=== PATIENT | male | born 1965 | race Caucasian/White ===

== ENCOUNTER 2018-03-17 15:14 | Observation (INO) | payer OTHER, SELFPAY ==
[2018-03-17 15:16] VITALS: BP 142/87; PULSE 83; RESP 15; TEMP 36.8; O2SAT 98; BMI 32.8
--- NOTE | 2018-03-17 15:42 | CT_ITS ---
STUDY: CT BRAIN WITHOUT CONTRAST REASON FOR EXAM: Male, 53 years old. Vertigo RADIATION DOSAGE (If Supplied By Facility): CTDIvol = ( 44.99 ) mGy, DLP = ( 762.36 ) mGycm TECHNIQUE: Transaxial CT imaging of the brain was performed without administration of intravenous contrast material. Individualized dose optimization techniques were used for this CT. COMPARISON: None. FINDINGS: There is no acute bleed or infarct. There are normal white matter tracts. The ventricles are normal in configuration. There is no hydrocephalus. The visualized paranasal sinuses are clear. The mastoid air cells are well aerated. There is no skull fracture. CT/Brain/Head without Contrast IMPRESSION: No acute intracranial abnormality. Electronically Signed: John Flower, at 16:31 EDT Tel , Service support ,
[2018-03-17] MEDS: LORazepam 2 MG/ML Syringe 0.5 MG IV (15:54)
[2018-03-17] MEDS: Ondansetron 4 MG/2 ML Vial IV (15:54)
--- NOTE | 2018-03-17 15:58 | NURSING ---
NO OLD EKGS
[2018-03-17 16:21] LABS: Basophil% 0.5 % (0-1); Eosinophils% 2.4 % (0-5); Hematocrit 46.6 % (40-54); Hemoglobin 15.7 g/dl (13.0-16.5); Lymphocyte % 45.1 % (19-41); Mean Corp Hgb Conc 33.7 g/gl (32-36); Mean Corpuscular Hgb 29.9 pg (27.0-32.0); Mean Corpuscular Volume 88.8 fL (80-94); Mean Platelet Vol. 9.8 fl (6.2-12.0); Monocyte% 7.1 % (0-10); Neutrophil % 44.7 % (47-70); POSITIVE COUNT NO; POSITIVE DIFFERENTIAL NO; POSITIVE MORPHOLOGY NO; Platelet Count 294 K/mm3 (150-450); RBC Distribution Width SD 41.7 fl (35.1-43.9); Red Blood Count 5.25 M/mm3 (4.6-6.2); White Blood Count 8.5 K/mm3 (4.4-11.0)
[2018-03-17 16:22] LABS: Absolute Lymphocyte Count 3.82 X10^3/ul (0.83-4.51); Absolute Neutrophil Count 3.8 X10^3/uL (2.0-7.7); Basophil# 0.04 X10^3/uL; Lymphocyte # 3.82 X10^3/ul (4.0); Neutrophil # 3.79 X10^3/uL (2.7-7.7)
[2018-03-17 16:30] LABS: ALB/GLOB Ratio 1.2 RATIO (0.9-2.4); AST(SGOT) 27 U/L (15-37); Alanine Aminotransfer ALT/SGPT 43 U/L (16-61); Albumin, Serum 4.1 g/dL (3.2-5.0); Alkaline Phosphatase 106 U/L (45-117); Anion Gap 9 (5-15); BUN 12 mg/dL (7-18); BUN/Creat Ratio 9.2 RATIO (10-20); Calcium,Total 8.9 mg/dL (8.5-10.1); Chloride 106 mmol/L (98-107); Creatinine, Serum 1.31 mg/dL (0.70-1.30); EST Glomerular Filtration Rate 61 mL/min (>60); Est Glom Filt Rate - Afr Amer 73 mL/min (>60); Estimated Creatinine Clearance 60.27 ml/min; Globulin 3.3 g/dL (2.2-4.2); Glucose 186 mg/dL (74-106); Potassium 3.5 mmol/L (3.5-5.1); Protein, Total 7.4 g/dL (6.4-8.2); Sodium Level 141 mmol/L (136-145)
--- NOTE | 2018-03-17 17:11 | ED.VISSUMM ---
- ER Visit Summary Date of Service: 03/17/18 Chief Complaint: Vertigo History of Present Illness: The patient is a 53 M who woke up with vertigo this morning. It is not positional, although some episodes are worse with certain positions. He also has some disequilibrium, he feels drunk. He has no weakness, no fever or chills. He has no chest pain shortness of breath. Physical Examination: Not appear in acute distress. Moist mucous membranes, no obvious facial deformity No C-spine tenderness supple neck. Regular rate and rhythm without any obvious murmurs Clear lungs bilaterally speaking in full sentences without any obvious respiratory distress Abdomen soft and nontender no guarding or rebound Moves all extremities without any difficulty or pain. Skin does not show any obvious rashes or lesions, no trauma. Alert oriented ?3 with no gross focal deficit. He has a negative cerebellar, however a positive Romberg. Emergency Department Course and Treatment: CT of the head and blood work are unremarkable, I am unable to do a CT angiogram of the head and neck since he has an iodine allergy, he will need an MRI and an MRA, he has a history of hypertension hypercholesterolemia, diabetes and heart attack with stent. The concern today is vertebral basilar insufficiency. Disposition: Admit stable condition Impression: Vertigo This note was generated with [employer] dictation software. It may contain incorrect words, spelling, and punctuation that were not noted in review of the chart prior to signing ED Disposition - Plan for ED Patient: Chief Complaint: Dizziness Referrals: Jose A Bush MD [Primary Care Provider] -
[2018-03-17 17:15] VITALS: BP 143/76; PULSE 85; RESP 16; O2SAT 97
[2018-03-17] MEDS: Aspirin 325 MG Tablet PO (17:21)
--- NOTE | 2018-03-17 17:39 | PCM.HP.STD ---
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 The patient woke up this morning with a sensation of the room spinning. He noticed that both while lying flat and also when he was up moving. He had difficulty ambulating because he felt unsteady. At first he felt like the vertigo was not as severe sitting in certain positions however later through the day he felt like nothing he did made it better. He denies headache however he felt like he might be having the onset of a migraine, he has had these in the past, and he took ibuprofen and Excedrin. He had no relief of his symptoms. He has no light sensitivity. He denies double vision or blurry vision. He has no focal weaknesses. He has no slurred speech or facial droop. Currently in the emergency room he still feels the sensation of the room spinning and has had no relief. [] Past Medical History Past Medical History (Chronic Problems): Chronic Problems HTN (hypertension) (Chronic) HLD (hyperlipidemia) (Chronic) CAD (coronary artery disease) (Chronic) DM2 (diabetes mellitus, type 2) (Chronic) Allergies Iodinated Contrast- Oral and IV Dye [CONTRASTS] Allergy (Verified 03/17/18 15:15) Hives levofloxacin [From Levaquin] Allergy (Verified 03/17/18 15:15) Hives Home Medications: Ambulatory Orders Medication Instructions Recorded Aspirin [Aspirin, Baby] 81 mg PO DAILY@0800 03/17/18 Atenolol [Tenormin] 25 mg PO DAILY 03/17/18 Atorvastatin Calcium [Lipitor] 80 mg PO QHS 03/17/18 Lisinopril [Zestril] 2.5 mg PO DAILY 03/17/18 Pantoprazole Sodium [Protonix] 20 mg PO DAILY 03/17/18 Zolpidem Tartrate [Ambien] 10 mg PO QHS 03/17/18 Surgical History: cholecystectomy, rotator cuff repair Psychiatric History: No pertinent psych hx Lives: Spouse/ Significant Other Smoking Status: Never smoker Alcohol: Occasional Drugs: None - *Family History Maternal History Items: Cancer - cervical Paternal History Items: Heart Disease - [place] 42 Review of Systems Constitutional: Denies: Chills, Fever, Weight Change HEENT: Denies: Head Aches, Sinus Congestion, Sinus Drainage Cardiovascular: Denies: Chest Pain, Palpitations Respiratory: Denies: Cough, Shortness of breath at rest, Sputum production Gastrointestinal: Denies: Abdominal Pain, Nausea, Vomiting Genitourinary: Denies: Dysuria Musculoskeletal: Denies: Joint Pain, Joint Tenderness Skin: Denies: Rash, Wounds Neurological: Reports: Balance problems, - - vertigo. Denies: Blurred vision, Double vision, Change in Speech, Slurred speech, Confusion, Difficulty swallowing, Focal weakness, Headaches, Numbness, Tingling Psychiatric: Denies: Anxiety, Depression, Homicidal Ideations, Suicidal Ideations Hematologic/ Lymphatic: Denies: Easy Bruising, Easy Bleeding VTE Information - Inpt Only VTE Present on Admission: No VTE Mechan Device Prophylaxis: None VTE Pharm Prophylaxis ordered?: Yes Patient Problems: Active and Suspected Problems CVA (cerebral vascular accident) (Acute) Vertigo (Acute) - Physical Exam General: Alert, Oriented x3, Cooperative HEENT: Atraumatic, PERRLA, EOMI, Normocephalic Neck: Supple, No JVD, Negative Carotid Bruits Lungs: Clear to auscultation, Normal air movement Cardiovascular: Regular rate, No murmurs Abdomen: Bowel Sounds Present, Soft, Non Tender Extremities: No edema, Capillary Refill Less than 3 Seconds Skin: No rashes, No breakdown Musculoskeletal: No Tenderness to Palpation of Joints or Extremities Neurological: Cranial nerves II-XII grossly intact, - - 2 beats nystagmus BL Psych/Mental Status: Normal Affect, Appropriate, Alert and oriented to time, place, person, mood and affect Vital Signs Temp Pulse Resp BP Pulse Ox 98.3 F 85 16 143/76 H 97 03/17/18 15:16 08/12/18 17:15 03/17/18 17:15 03/17/18 17:15 03/17/18 17:15 Oxygen Delivery Method Room Air Weight: 210 lb Body Mass Index (BMI) 32.8 Laboratory Tests Past 24 Hrs 03/17/18 03/17/18 15:55 15:55 WBC 8.5 RBC 5.25 Hgb 15.7 Hct 46.6 MCV 88.8 MCH 29.9 MCHC 33.7 RDW 13.0 RDW Differential 41.7 Plt Count 294 MPV 9.8 Immature Gran % (Auto) 0.200 Neut % (Auto) 44.7 L Lymph % (Auto) 45.1 H Ceiba % (Auto) 7.1 Eos % (Auto) 2.4 Baso % (Auto) 0.5 Absolute Neuts (auto) 3.8 Absolute Lymphs (auto) 3.82 Total Counted Not Reportable Sodium 141 Potassium 3.5 Chloride 106 Carbon Dioxide 26.0 Anion Gap 9 BUN 12 Creatinine 1.31 H Estim Creat Clear Calc 60.27 Est GFR (MDRD) Af Amer 73 Est GFR (MDRD) Non-Af 61 BUN/Creatinine Ratio 9.2 L Glucose 186 H Calcium 8.9 Total Bilirubin 0.60 AST 27 ALT 43 Alkaline Phosphatase 106 Troponin I < 0.015 Total Protein 7.4 Albumin 4.1 Globulin 3.3 Albumin/Globulin Ratio 1.2 Assessment/Plan All Active Problems CVA (cerebral vascular accident) (Acute) Vertigo (Acute) 1. Vertigo with concern for Acute CVA - new onset vertigo, woke up with it. At first he thought it was positional, then worsened and position made no difference. Nystagmus on exam, otherwise benign. CT brain negative. Other risk factors include HTN, HLD, undiagnosed DMt2. No smoking hx. He will be admitted to the PCU on tele with NIH checks. He will have an MRI/MRA of the brain, head, neck, and an echo. Continue asa and statin. -he also has a hx of migraine although denies headache at this time. -PT/OT/ST evals. 2. CAD - pt of Dr. Martinez, has 1 stent, 2003. On asa, statin, keny, bb. 3. Hyperglycemia - suspect undiagnosed DMt2. Check A1C and initiate therapy as directed 4. HTN - stable 5. HLD - statin 6. Mildly elevated creatinine - suspect underlying CKD. Baseline unknown. DVT ppx: Heparin This patient was seen by Nicolas Klein PA-C under the supervision of Doctor Jessica. <Mukund Lopez - Last Filed: 03/17/18 18:03> Problem List (1) Vertigo Status: Acute History of Present Illness The patient is a 53 year old M who awoke this morning very dizzy. Patient rolled over and just felt just awful. Was not getting better and presented to the emergency room. Patient underwent a CAT scan that showed no acute process. Patient states that he does not have any dizziness except for when he moves. Any subtle movement just causes him to be dizzy. He denies any unilateral weakness strokelike symptoms. Patient has never had dizziness like this before. [] Past Medical History Allergies Iodinated Contrast- Oral and IV Dye [CONTRASTS] Allergy (Verified 03/17/18 15:15) Hives levofloxacin [From Levaquin] Allergy (Verified 03/17/18 15:15) Hives Surgical History: cholecystectomy, rotator cuff repair Psychiatric History: No pertinent psych hx Lives: Spouse/ Significant Other Smoking Status: Never smoker Alcohol: Occasional Drugs: None - *Family History Maternal History Items: Cancer Paternal History Items: Heart Disease Review of Systems Constitutional: Denies: Chills, Fever, Weight Change HEENT: Denies: Head Aches, Sinus Congestion, Sinus Drainage Cardiovascular: Denies: Chest Pain, Palpitations Respiratory: Denies: Cough, Shortness of breath at rest Gastrointestinal: Denies: Abdominal Pain, Nausea, Vomiting Genitourinary: Denies: Dysuria Musculoskeletal: Denies: Joint Pain, Joint Tenderness Skin: Denies: Rash, Wounds Neurological: Reports: Balance problems, -. Denies: Blurred vision, Double vision, Change in Speech, Slurred speech, Confusion, Difficulty swallowing, Focal weakness, Headaches, Numbness, Tingling Psychiatric: Denies: Anxiety, Depression, Homicidal Ideations, Suicidal Ideations Hematologic/ Lymphatic: Denies: Easy Bruising, Easy Bleeding Comment: All review of systems are negative except as mentioned in the history of present illness and the other review of systems. VTE Information - Inpt Only VTE Present on Admission: No VTE Mechan Device Prophylaxis: None VTE Pharm Prophylaxis ordered?: Yes - Physical Exam General: Alert, Oriented x3, Cooperative HEENT: Atraumatic, EOMI, Normocephalic, - - There was some vertical nystagmus that did fatigue. Noted most notably on the left but there was some on the right. Oral: Moist Mucosa, No Gingival or Mucosal Lesions/ Ulcerations Neck: No Nodes, Thyroid Normal Size and Texture Lungs: Clear to auscultation, Normal air movement, No rhonchi, No wheeze Cardiovascular: Regular rate, Regular Rhythm, Normal S1, Normal S2, No murmurs Abdomen: Bowel Sounds Present, Soft, Non Tender, Non-Distended Extremities: No edema, No Calf Tenderness Skin: No rashes, No breakdown Musculoskeletal: No Tenderness to Palpation of Joints or Extremities, No Muscle Wasting Neurological: Cranial nerves II-XII grossly intact, Motor Exam 5/5 strength throughout, Sensory exam intact to light touch and pain, Coordination normal, - - 2 beats nystagmus BL. Tahmina-Hallpike maneuver was positive for reproducible dizziness on the right. Psych/Mental Status: Normal Affect, Appropriate Vital Signs Temp Pulse Resp BP Pulse Ox 36.8 C 85 16 143/76 H 97 03/17/18 15:16 03/17/18 17:15 03/17/18 17:15 03/17/18 17:15 03/17/18 17:15 Oxygen Delivery Method Room Air Weight: 95.254 kg Body Mass Index (BMI) 32.8 Laboratory Tests Past 24 Hrs 03/17/18 03/17/18 15:55 15:55 WBC 8.5 RBC 5.25 Hgb 15.7 Hct 46.6 MCV 88.8 MCH 29.9 MCHC 33.7 RDW 13.0 RDW Differential 41.7 Plt Count 294 MPV 9.8 Immature Gran % (Auto) 0.200 Neut % (Auto) 44.7 L Lymph % (Auto) 45.1 H Ceiba % (Auto) 7.1 Eos % (Auto) 2.4 Baso % (Auto) 0.5 Absolute Neuts (auto) 3.8 Absolute Lymphs (auto) 3.82 Total Counted Not Reportable Sodium 141 Potassium 3.5 Chloride 106 Carbon Dioxide 26.0 Anion Gap 9 BUN 12 Creatinine 1.31 H Estim Creat Clear Calc 60.27 Est GFR (MDRD) Af Amer 73 Est GFR (MDRD) Non-Af 61 BUN/Creatinine Ratio 9.2 L Glucose 186 H Calcium 8.9 Total Bilirubin 0.60 AST 27 ALT 43 Alkaline Phosphatase 106 Troponin I < 0.015 Total Protein 7.4 Albumin 4.1 Globulin 3.3 Albumin/Globulin Ratio 1.2 EKG showed normal sinus rhythm with no acute changes. Clinical Impression(s) from Imaging Studies Brain CT 03/17/18 15:42 IMPRESSION: No acute intracranial abnormality. Electronically Signed: John Flower, at 16:31 EDT Tel , Service support , Assessment/Plan Patient seen and examined independently. Data reviewed. I agree with the above note by the physician content assistant. 1. 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 2. Chronic kidney disease stage II Monitor Will get some IV fluids parlay if it is unclear if this may be acute components as there is no prior lab work to compare to but the IV fluids were think will also help some of his symptoms 3. Hyperglycemia Sliding scale insulin and glucose checks 4. DVT prophylaxis with Lovenox Code Visit OBSV E&M: 83562 Initial observation care L3
--- NOTE | 2018-03-17 17:40 | NURSING ---
PCU DIZZINESS OBS JOPPERI
--- NOTE | 2018-03-17 17:46 | NURSING ---
DR DAVIS IN WITH PATIENT
[2018-03-17 18:05] VITALS: BP 141/80; PULSE 81; RESP 17; O2SAT 95
[2018-03-17 18:44] VITALS: BMI 32.8; BMI 32.9
[2018-03-17 19:36] VITALS: BP 127/71; PULSE 71; RESP 16; TEMP 36.6; O2SAT 95
[2018-03-17] MEDS: Meclizine HCl 25 MG Tablet PO (19:41)
[2018-03-17] MEDS: Acetaminophen 325 MG Tablet 650 MG PO (20:16)
[2018-03-17] MEDS: 0.9% Normal Saline 1,000 ML 125 ML IV (20:17)
[2018-03-17] MEDS: Atorvastatin Calcium 80 MG Tablet PO (22:21)
[2018-03-17] MEDS: Pantoprazole Sodium 20 MG Tablet PO (22:21)
[2018-03-17] MEDS: Atenolol 25 MG Tablet PO (22:22)
[2018-03-17] MEDS: Lisinopril 2.5 MG Tablet PO (22:22)
[2018-03-18] MEDS: DiphenhydrAMINE 25 MG Capsule PO (00:06)
[2018-03-18] MEDS: Aspirin 81 MG TAB.CHEW PO (00:07)
[2018-03-18 01:40] VITALS: BP 94/51; PULSE 66; RESP 16; TEMP 36.6; O2SAT 95
[2018-03-18 05:56] LABS: Cholesterol 111 mg/dL (200); High Density Lipoprotein 30 mg/dL; Triglycerides 200 mg/dL; Very Low Density Lipoprotein 40 mg/dL (5-40)
[2018-03-18 07:20] LABS: Bedside Glucose 114 mg/dL (70-110)
[2018-03-18 07:24] VITALS: BP 100/62; BP 124/83; BP 126/78; PULSE 64; PULSE 69; PULSE 74
[2018-03-18 07:25] VITALS: BP 100/62; PULSE 64; RESP 16; TEMP 36.4; O2SAT 98
[2018-03-18] MEDS: Meclizine HCl 25 MG Tablet PO (07:33)
[2018-03-18] MEDS: Enoxaparin 40 MG/0.4 ML Syringe SC (10:06)
[2018-03-18] MEDS: Insulin Lispro 100 UNIT/ML INSULN.PEN SQ (11:25)
[2018-03-18 11:26] LABS: Bedside Glucose 197 mg/dL (70-110)
[2018-03-18 11:27] VITALS: BP 126/69; PULSE 67; RESP 16; TEMP 36.6; O2SAT 98
--- NOTE | 2018-03-18 11:37 | PCM.DC ---
- Discharge Diagnoses Current Active Problems: Current Active and Chronic Problems CVA (cerebral vascular accident) (Acute) HTN (hypertension) (Chronic) HLD (hyperlipidemia) (Chronic) CAD (coronary artery disease) (Chronic) DM2 (diabetes mellitus, type 2) (Chronic) Vertigo (Acute) You will use the following diet at home:: Calorie/Carbohydrate Controlled (specify 1200, 1400, etc) - 1800 piper / day, Cardiac - 2 gram sodium max daily Your food should be the consistency of: Regular Your liquids should be the consistency of: Regular/Thin Discharge Activity: Return to Normal Activity, - - Begin vestibular therapy at facility of your choice [facility] Allergies/Adverse Reactions: Allergies Iodinated Contrast- Oral and IV Dye [CONTRASTS] Allergy (Verified 03/17/18 15:15) Hives levofloxacin [From Levaquin] Allergy (Verified 03/17/18 15:15) Hives Medications to take at Discharge Aspirin [Aspirin, Baby] 81 mg PO DAILY@0800 03/17/18 Atenolol [Tenormin] 25 mg PO DAILY 03/17/18 Atorvastatin Calcium [Lipitor] 80 mg PO QHS 03/17/18 L.acidoph,Paracasei, B.lactis [Probiotic] 1 each PO DAILY 03/17/18 Lisinopril [Zestril] 2.5 mg PO DAILY 03/17/18 Pantoprazole Sodium [Protonix] 20 mg PO DAILY 03/17/18 Zolpidem Tartrate [Ambien] 10 mg PO QHS 03/17/18 Meclizine HCl [Antivert] 25 mg PO TID PRN PRN #42 tab 03/18/18 The following prescriptions were given: Meclizine HCl [Antivert] 25 mg PO TID PRN PRN #42 tab PRN Reason: Vertigo Primary Care Physician: Jose A Bush MD [Primary Care Provider] - Please follow up with your Primary Care Physician in: 1 week Test Results: Test results from this visit will be discussed in further detail at your follow-up appointment, if applicable. Proposed Discharge Date: 03/18/18
--- NOTE | 2018-03-18 13:19 | PCM.DC.SUM ---
<Nicolas Klein - Last Filed: 03/18/18 13:19> Discharge Date and Diagnosis Date of Admission: 03/17/18 Date of Discharge: 03/18/18 - Primary Discharge Diagnosis Vertigo 2/2 BPPV HTN HLD CAD Untreated DMt2 - Secondary Discharge Diagnosis Chronic Problems HTN (hypertension) (Chronic) HLD (hyperlipidemia) (Chronic) CAD (coronary artery disease) (Chronic) DM2 (diabetes mellitus, type 2) (Chronic) Hospital Course and Treatment Imaging Results: CT/Brain/Head without Contrast IMPRESSION: No acute intracranial abnormality. Operations: None Procedures: None Summary of Care Provided: Physical exam on day of discharge: General: Resting comfortably NAD Psych: A/Ox3 normal affect HEENT: PEARRLA AT NC, lateral nystagmus bilaterally 2-3 beats Neck: Supple NT CV: RRR no m/t/r/g/h Resp: CTA Abd: [id number] Soft NT no guarding or rigidity Ext: DP2+= no edema Skin: W/D normal turgor Lymph/Heme: No active bleeding or adenopathy Neuro: CN2-12 intact Hospital course: The patient is a 53 year old M with a history of CAD status post prior stenting x 2003, hypertension, hyperlipidemia, untreated diabetes type 2, who presents to the emergency room with new onset of vertigo that began the morning of presentation. The patient woke up with it and described as a spinning sensation that he felt while laying down and worse with standing up and moving. As the day progressed the sensation became worse with no relief. He thought he might be having a migraine and try taking some ibuprofen and Excedrin with no relief. He presented to the emergency room and continued to have sensations of vertigo. CT of the brain was obtained which was negative. Initially there was a concern that he may have experienced a stroke however on further exam he had positive nystagmus and positive Tahmina-Hallpike maneuvers. He was felt to have BPPV. He was admitted to the general medical floor and PT and OT was ordered, as needed meclizine was ordered. The following morning he had some improvement in his symptoms although he continued to have vertigo worse with standing and walking. This felt that he could be discharged home to have follow-up with his PCP and to have vestibular therapy as an outpatient. A prescription for this was provided as well as for as needed meclizine. Furthermore his blood sugar was elevated at 180 when he showed up in the ER, and it was discovered that he had stopped taking metformin. He likely has underlying diabetes type 2 and should be treated especially considering his history of CAD, hypertension, and hyperlipidemia. We advised him to discuss treatment options with his PCP and advised an 1800-calorie diet at discharge in addition to a cardiac diet. Patient was discharged home in stable condition. This patient was seen by Nicolas Klein PA-C under the supervision of Doctor Jessica. [] Discharge Diet: Low fat/ Low Cholesterol, 1800 Calorie Control Diet, 2000 mg Sodium Diet Discharge Activity: Return to Normal Activity, - - Begin vestibular therapy at facility of your choice [facility] Medications: Medications to take at Discharge Aspirin [Aspirin, Baby] 81 mg PO DAILY@0800 03/17/18 Atenolol [Tenormin] 25 mg PO DAILY 03/17/18 Atorvastatin Calcium [Lipitor] 80 mg PO QHS 03/17/18 L.acidoph,Paracasei, B.lactis [Probiotic] 1 each PO DAILY 03/17/18 Lisinopril [Zestril] 2.5 mg PO DAILY 03/17/18 Pantoprazole Sodium [Protonix] 20 mg PO DAILY 03/17/18 Zolpidem Tartrate [Ambien] 10 mg PO QHS 03/17/18 Meclizine HCl [Antivert] 25 mg PO TID PRN PRN #42 tab 03/18/18 Following Prescrptions Were Given to Patient: Meclizine HCl [Antivert] 25 mg PO TID PRN PRN #42 tab PRN Reason: Vertigo Primary Care Physician: Jose A Bush MD [Primary Care Provider] - Please follow up with your Primary Care Physician in: 1 week Disposition: Home Minutes spent on discharge:: 35 Patient Condition:: Stable Medical Necessity - Tobacco Use Smoking Status: Never smoker Meaningful Use Info Meaningful Use Diagnoses (Choose all that apply): None applicable <Mukund Lopez - Last Filed: 03/18/18 14:04> Discharge Date and Diagnosis - Secondary Discharge Diagnosis Chronic Problems HTN (hypertension) (Chronic) HLD (hyperlipidemia) (Chronic) CAD (coronary artery disease) (Chronic) DM2 (diabetes mellitus, type 2) (Chronic) Hospital Course and Treatment Operations: None Procedures: None Summary of Care Provided: Patient seen and examined independently. Data reviewed. I agree with the above note by the physician assistant food service director. The patient is a 53 year old M alecia with acute onset of dizziness. Clinically, this was benign paroxysmal positional vertigo. Patient had acute onset of symptoms worse with movement. On exam, patient had fatigable nystagmus. Patient had a positive [place]-Hallpike on the right. Some additional stroke workup was not necessary. Today, the patient was feeling better though still dizzy. I attempted doing Martha maneuvers with him and patient still remained dizzy. Patient was seen by therapy did not recommend skilled needs for the patient. Patient will be discharged home with meclizine as needed but also with instructions to follow-up with physical therapy for vestibular rehab. [] Discharge Diet: Low fat/ Low Cholesterol, 1800 Calorie Control Diet, 2000 mg Sodium Diet Discharge Activity: Return to Normal Activity, - Disposition: Home Patient Condition:: Stable Meaningful Use Info Meaningful Use Diagnoses (Choose all that apply): None applicable Code Visit OBSV E&M: 61172 Observation care discharge
== END 2018-03-18 13:00 | disposition home or self-care (01) ==
LOC: ED 17:56 → MS3 18:12
PROVIDERS: Emergency Provider Emergency Medicine; Family Provider Family Medicine; PCP Family Medicine
DX: H81.10 Benign paroxysmal vertigo, unspecified ear (principal); E78.5 Hyperlipidemia, unspecified; I25.10 Atherosclerotic heart disease of native coronary artery without angina pectoris; Z79.899 Other long term (current) drug therapy; Z79.82 Long term (current) use of aspirin; Z95.5 Presence of coronary angioplasty implant and graft; E11.22 Type 2 diabetes mellitus with diabetic chronic kidney disease; N18.2 Chronic kidney disease, stage 2 (mild); I12.9 Hypertensive chronic kidney disease with stage 1 through stage 4 chronic kidney disease, or unspecified chronic kidney disease; E11.65 Type 2 diabetes mellitus with hyperglycemia
CPT/HCPCS: 36415; 70450; 80053; 80061; 82962; 84484; 85025; 93005; 96361; 96372; 96374; 96375; 96376; 97162; 97166; 99218; 99282; J7030; J7040; A4216; G0378; J2405

== ENCOUNTER 2019-07-10 12:58 | Observation (INO) | payer OTHER, SELFPAY ==
[2019-07-10] VITALS (9 sets, daily range): BP systolic 145–162; BP diastolic 83–93; PULSE 72–102; RESP 14–18; TEMP 36.5–36.8; O2SAT 95–99; BMI 34.2; BMI 33.2
--- NOTE | 2019-07-10 13:22 | EKG12_ITS ---
Test Reason : CP Blood Pressure : / mmHG Vent. Rate : 087 BPM Atrial Rate : 087 BPM P-R Int : 150 ms QRS Dur : 082 ms QT Int : 374 ms P-R-T Axes : 031 -05 002 degrees QTc Int : 450 ms Normal sinus rhythm Normal ECG Confirmed by JORDAN LOPEZ, FELIPA ([id number]), news assignment editor NATASHA ZHU ([id number]) on 07/13/2019 9:59:13 AM Referred By: Saritha Arce Confirmed By:MICHA ORTEGA MD
--- NOTE | 2019-07-10 13:25 | RAD_ITS ---
STUDY: X-RAY CHEST REASON FOR EXAM: Male, 54 years old. Chest pain. TECHNIQUE: Single AP portable view of the chest. COMPARISON: None. FINDINGS: EKG electrodes are seen. The lungs are clear and expanded. There is no demonstrated pleural abnormality. Normal size heart. Normal mediastinum and mamadou. Normal visualized pulmonary arteries. Normal visualized aortic arch and descending thoracic aorta. Normal visualized thoracic spine. Status post left shoulder replacement. Prior fusion in the lower cervical spine. There is no demonstrated abnormality of the visualized soft tissue structures of the upper abdomen. RAD/Chest 1 View (Portable) IMPRESSION: Normal x-ray examination of the chest. Electronically Signed: Ar Tenorio, at 13:43 EST , Service support ,
[2019-07-10 13:33] LABS: Absolute Lymphocyte Count 3.55 X10^3/uL (0.83-4.51); Absolute Neutrophil Count 5.5 X10^3/uL (2.0-7.7); Basophil# 0.05 X10^3/uL; Basophil% 0.5 % (0-1); Eosinophil# 0.15 X10^3/uL; Eosinophils% 1.5 % (0-5); Hematocrit 46.7 % (40-54); Hemoglobin 15.9 g/dL (13.0-16.5); Lymphocyte # 3.55 X10^3/ul (4.0); Lymphocyte % 35.6 % (19-41); Mean Corpuscular Hgb 30.3 pg (27.0-32.0); Mean Platelet Vol. 9.7 fl (6.2-12.0); Monocyte# 0.73 X10^3/uL; Monocyte% 7.3 % (0-10); NRBC Flagged by Analyzer 0 % (0-5); Neutrophil # 5.46 X10^3/uL (2.7-7.7); Neutrophil % 54.7 % (47-70); Platelet Count 388 K/mm3 (150-450); RBC Distribution Width CV 13.2 % (11.6-14.6); RBC Distribution Width SD 42.5 fl (35.1-43.9); Red Blood Count 5.25 M/mm3 (4.6-6.2)
[2019-07-10] MEDS: Aspirin 81 MG TAB.CHEW 324 MG PO (13:34)
[2019-07-10] MEDS: 0.9% Normal Saline 1,000 ML 150 ML IV (13:34)
[2019-07-10 13:47] LABS: Anion Gap 7 (5-15); BUN 11 mg/dL (7-18); BUN/Creat Ratio 8.2 RATIO (10-20); Chloride 109 mmol/L (98-107); Creatinine, Serum 1.34 mg/dL (0.70-1.30); EST Glomerular Filtration Rate 59 mL/min (>60); Est Glom Filt Rate - Afr Amer 71 mL/min (>60); Estimated Creatinine Clearance 58.23 ml/min; Glucose 97 mg/dL (74-106); Potassium 4.1 mmol/L (3.5-5.1); Sodium Level 143 mmol/L (136-145)
--- NOTE | 2019-07-10 14:51 | ED.VISSUMM ---
- ER Visit Summary Date of Service: 07/10/19 Chief Complaint: [Chest pain] History of Present Illness: The patient is a 54 M [presents to the emergency department for complaint of chest discomfort started this morning around 10:30 AM. Patient was walking to his car when the discomfort started. Described a pressure-like and radiated into his neck. Patient has had similar discomfort in the past. He has known coronary artery disease and has had a cardiac stent. Patient also felt somewhat lightheaded with it and short of breath as well as nauseated. On arrival to the ER his discomforts mostly resolved. Patient does have prior history of stroke, diabetes, hypertension, vertigo, and coronary artery disease. He denies recent travel or surgery. He has no history of PE or DVT.] Physical Examination: [HEENT-PERRLA, EOMI. Cranial nerves II through XII grossly intact. TMs clear. Mucous membranes moist. No adenopathy. Cardiovascular-regular rate and rhythm without murmur or ectopy Lungs-clear to auscultation, chest wall stable without crepitus or subcu emphysema Abdomen-normoactive bowel sounds, soft, nontender, no rebound or rigidity, no peritoneal signs. Extremities-intact ?4, normal range of motion, normal pulses, atraumatic] Test Results: [EKG obtained arrival shows sinus rhythm with a ventricular rate of 87 bpm with no acute ST segment changes. CBC with differential was normal. Chemistries unremarkable. Troponin was less than 0.015. Chest x-ray showed nothing acute. Emergency Department Course and Treatment: [Received aspirin on arrival.] Treatment Plan: [Admit] Disposition: [Admit] Impression: [Chest pain-rule out acute coronary syndrome] This note was generated with [employer] dictation software. It may contain incorrect words, spelling, and punctuation that were not noted in review of the chart prior to signing ED Disposition - Plan for ED Patient: Referrals: Jose A Bush MD [Primary Care Provider] -
--- NOTE | 2019-07-10 15:09 | PCM.HP.STD ---
<Lakia Garcia - Last Filed: 07/10/19 15:26> Problem List (1) HTN (hypertension) Status: Chronic (2) HLD (hyperlipidemia) Status: Chronic (3) CAD (coronary artery disease) Status: Chronic (4) DM2 (diabetes mellitus, type 2) Status: Chronic (5) Vertigo Status: Acute History of Present Illness Date of Admission: 07/10/19 Chief Complaint: Chest pain. The patient is a 54 year old M who presents emergency room due to chest pain which began around 1030 this morning and resolved after approximately 2 hours. Patient reports he was walking to his car after work when he developed sudden onset midsternal chest pressure which radiated up the left side of his neck. He reports associated shortness of breath and diaphoresis. He also reports lightheadedness and feeling weak. Patient has a history of CAD with prior stent in 2003 at the age of 38 and reports his presenting symptoms feel similar to prior [place]. at bedside reports patient has appeared to be more short of breath with activity for the past several months although patient denies noticing increased shortness of breath and states it is just due to being overweight and out of shape. Patient states he has had 7 stress test that were normal since his stent was placed, most recently 2 years ago prior to left shoulder replacement surgery. His other past medical history includes hypertension, hyperlipidemia, type 2 diabetes mellitus, obesity. Past Medical History Past Medical History (Chronic Problems): Chronic Problems HTN (hypertension) (Chronic) HLD (hyperlipidemia) (Chronic) CAD (coronary artery disease) (Chronic) DM2 (diabetes mellitus, type 2) (Chronic) Allergies Iodinated Contrast Media [CONTRASTS] Allergy (Verified 07/10/19 13:04) Hives levofloxacin [From Levaquin] Allergy (Verified 07/10/19 13:04) Hives Home Medications: Ambulatory Orders Medication Instructions Recorded Aspirin [Aspirin, Baby] 81 mg PO DAILY@199903/17/18 Atenolol [Tenormin] 25 mg PO DAILY 03/17/18 Atorvastatin Calcium [Lipitor] 80 mg PO QHS 03/17/18 L.acidoph,Paracasei, B.lactis 1 each PO DAILY 03/17/18 [Probiotic] Zolpidem Tartrate [Ambien] 10 mg PO QHS 03/17/18 Glimepiride 2 mg PO DAILY 07/10/19 Lisinopril [Zestril] 5 mg PO DAILY 07/10/19 Pantoprazole Sodium [Protonix] 40 mg PO QHS 07/10/19 Surgical History: cholecystectomy, rotator cuff repair - Left shoulder surgery x3, - - Cardiac stent placement, hernia repair. Psychiatric History: No pertinent psych hx Lives: Spouse/ Significant Other Smoking Status: Never smoker Alcohol: None Drugs: None - *Family History Maternal History Items: Cancer - Ovarian, - - Heart failure Paternal History Items: Heart Disease - from [place] at age 42 Review of Systems Constitutional: Denies: Chills, Fever, Weight Change HEENT: Denies: Head Aches, Sinus Congestion, Sinus Drainage Cardiovascular: Reports: Chest Pain, Light Headedness. Denies: Edema, Palpitations, Syncope Respiratory: Denies: Cough, Shortness of breath at rest, Sputum production Gastrointestinal: Denies: Abdominal Pain, Nausea, Vomiting Genitourinary: Denies: Dysuria Musculoskeletal: Denies: Joint Pain, Joint Tenderness Skin: Denies: Rash, Wounds Neurological: Denies: Numbness, Tingling, Focal weakness Psychiatric: Denies: Anxiety, Depression, Homicidal Ideations, Suicidal Ideations Hematologic/ Lymphatic: Denies: Easy Bruising, Easy Bleeding VTE Information - Inpt Only VTE Present on Admission: No VTE Mechan Device Prophylaxis: None VTE Pharm Prophylaxis ordered?: Yes - Physical Exam Vitals/I&O's: Vital Signs Temp Pulse Resp BP Pulse Ox 98.2 F 74 16 162/93 H 96 07/10/19 12:58 07/10/19 14:40 07/10/19 14:40 07/10/19 14:40 07/10/19 14:40 Oxygen Delivery Method Room Air Weight: 218 lb 11.177 oz Body Mass Index (BMI) 34.2 General: Alert, Oriented x3, Cooperative HEENT: Atraumatic, PERRLA, EOMI, Normocephalic Neck: Supple, No JVD, Negative Carotid Bruits Lungs: Clear to auscultation, Normal air movement Cardiovascular: Regular rate, Regular Rhythm, Normal S1, Normal S2, No murmurs Abdomen: Bowel Sounds Present, Soft, Non Tender, Non-Distended, Obese Extremities: No clubbing, No cyanosis, No edema, Capillary Refill Less than 3 Seconds Skin: No rashes, No breakdown Musculoskeletal: No Tenderness to Palpation of Joints or Extremities Neurological: Cranial nerves II-XII grossly intact, Neuro grossly intact Psych/Mental Status: Normal Affect, Appropriate Laboratory Results 07/10/19 13:10: WBC 10.0, RBC 5.25, Hgb 15.9, Hct 46.7, MCV 89.0, MCH 30.3, MCHC 34.0, RDW Std Deviation 42.5, RDW Coeff of Noam 13.2, Plt Count 388, MPV 9.7, Immature Gran % (Auto) 0.400, Neut % (Auto) 54.7, Lymph % (Auto) 35.6, [place] % (Auto) 7.3, Eos % (Auto) 1.5, Baso % (Auto) 0.5, Absolute Neuts (auto) 5.5, Absolute Lymphs (auto) 3.55, Nucleated RBC % 0 07/10/19 13:10: Sodium 143, Potassium 4.1, Chloride 109 H, Carbon Dioxide 27.0, Anion Gap 7, BUN 11, Creatinine 1.34 H, Estim Creat Clear Calc 58.23, Est GFR (MDRD) Af Amer 71, Est GFR (MDRD) Non-Af 59 L, BUN/Creatinine Ratio 8.2 L, Glucose 97, Calcium 9.0, Troponin I < 0.015 Current Medications Sodium Chloride () 1,000 mls @ 150 mls/hr IV .Q6H40M [facility] Last Admin: 07/10/19 13:34 Dose: 150 mls/hr Documented by: Assessment/Plan All Active Problems Vertigo (Acute) 1. Chest pain, history of CAD status post stent (2003)-EKG without ST-T changes. Initial troponin negative. Trend enzymes. Given normal stress test two years ago, presenting sx similar to prior [place], will discuss with cardiology completing another stress vs cath. Continue aspirin, statin, beta-vj. 2. Hypertension-stable, continue home atenolol, lisinopril regimen. 3. Hyperlipidemia- continue statin. 4. Type 2 diabetes mellitus-hold oral regimen. Accu-Cheks ACHS with SSI. 5. Obesity- encouraged diet and lifestyle modifications. 6. GERD-continue PPI. DVT prophylaxis-not indicated, early ambulation This patient was seen by NORRIS Villatoro under the supervision of Dr. Arce. <YazminSaritha - Last Filed: 07/10/19 15:56> History of Present Illness The patient is a 54 year old M [] Past Medical History Allergies Iodinated Contrast Media [CONTRASTS] Allergy (Verified 07/10/19 13:04) Hives levofloxacin [From Levaquin] Allergy (Verified 07/10/19 13:04) Hives - Physical Exam Vitals/I&O's: Vital Signs Temp Pulse Resp BP Pulse Ox 97.7 F L 75 14 145/83 H 95 07/10/19 15:36 07/10/19 15:44 07/10/19 15:36 07/10/19 15:36 07/10/19 15:36 Oxygen Delivery Method Room Air Weight: 212 lb Body Mass Index (BMI) 33.2 Laboratory Results 07/10/19 13:10: WBC 10.0, RBC 5.25, Hgb 15.9, Hct 46.7, MCV 89.0, MCH 30.3, MCHC 34.0, RDW Std Deviation 42.5, RDW Coeff of Noam 13.2, Plt Count 388, MPV 9.7, Immature Gran % (Auto) 0.400, Neut % (Auto) 54.7, Lymph % (Auto) 35.6, [place] % (Auto) 7.3, Eos % (Auto) 1.5, Baso % (Auto) 0.5, Absolute Neuts (auto) 5.5, Absolute Lymphs (auto) 3.55, Nucleated RBC % 0 07/10/19 13:10: Sodium 143, Potassium 4.1, Chloride 109 H, Carbon Dioxide 27.0, Anion Gap 7, BUN 11, Creatinine 1.34 H, Estim Creat Clear Calc 58.23, Est GFR (MDRD) Af Amer 71, Est GFR (MDRD) Non-Af 59 L, BUN/Creatinine Ratio 8.2 L, Glucose 97, Calcium 9.0, Troponin I < 0.015 Current Medications Acetaminophen (Tylenol) 650 mg PO Q6H PRN PRN PRN Reason: Pain Score 1-3/Temp > 100.7 F Aspirin (Aspirin, Baby) 81 mg PO DAILY@2000 [facility] Atenolol (Tenormin (Beta Vj)) 25 mg PO DAILY [facility] Atorvastatin Calcium (Lipitor) 80 mg PO QHS [facility] Dextrose (D50w Syringe) 0 gm IV X1 PRN; Protocol PRN Reason: Hypoglycemia Glimepiride (Amaryl) 2 mg PO DAILY@0800 [facility] Glucagon () 1 mg IM .X1 PRN PRN Reason: Hypoglycemia Insulin Human Lispro (Humalog Kwikpen (Bkc)) 0 unit SC ACHS [facility]; Protocol Lisinopril (Zestril) 5 mg PO DAILY [facility] Morphine Sulfate () 2 mg IV Q3H PRN PRN PRN Reason: Pain Score 6-10/10 Ondansetron HCl (Zofran) 4 mg IV Q8H PRN PRN PRN Reason: NAUSEA/VOMITING Pantoprazole Sodium (Protonix) 40 mg PO QHS [facility] Sodium Chloride () 10 - 40 ml IV UD PRN PRN Reason: SALINE FLUSH Zolpidem Tartrate (Ambien (Generic)) 5 mg PO QHS [facility] Zolpidem Tartrate (Ambien (Generic)) 5 mg PO QHS PRN PRN PRN Reason: SLEEP Assessment/Plan Patient seen by Lakia PISANO under my supervision Patient is a 54-year-old male was admitted through the ED on 07/10/2019 with a complaint of chest pain was started around 10:30 AM on the morning of presentation. Pain was pressure-like and occasionally stabbing and retrosternal with no radiation. It was aggravated by movement and exertion and relieved by rest and keeping still. He had not said lightheadedness or dizziness or palpitations. Patient does have a history of CAD status post stenting 2003. Initial troponin was negative. EKG showed no acute ST changes. o/e: Vital Signs Height 5 ft 7 in Weight: 212 lb Weight in Pounds 212.0 lbs Pulse Ox 95 Temperature 97.7 F Pulse Rate 75 Respiratory Rate 14 Blood Pressure 145/83 Blood Pressure Position Semi-Fowlers General: Alert, Oriented x3, Cooperative HEENT: Atraumatic, PERRLA, EOMI, Normocephalic Neck: Supple, No JVD, Negative Carotid Bruits Lungs: Clear to auscultation, Normal air movement Cardiovascular: Regular rate, Regular Rhythm, Normal S1, Normal S2, No murmurs Abdomen: Bowel Sounds Present, Soft, Non Tender, Non-Distended, Obese Extremities: No clubbing, No cyanosis, No edema, Capillary Refill Less than 3 Seconds Skin: No rashes, No breakdown Musculoskeletal: No Tenderness to Palpation of Joints or Extremities Neurological: Cranial nerves II-XII grossly intact, Neuro grossly intact Psych/Mental Status: Normal Affect, Appropriate Patient is very high risk for cardiac issues. He has a history of CAD with a stent in 2003. However he also has diabetes and high cholesterol and hypertension. His father at 42 of a heart attack after having his first heart attack at 40 and his brothers have also had extensive cardiac history at a relatively young age. I am not convinced that if this patient has a stress test and it is negative, I cannot completely rule out cardiac disease. As such, I think it is prudent to get cardiology involved at this point as I think he will benefit from a cardiac cath. Cardiology therefore consulted. Will check lipid panel. Cycle troponins. Continue aspirin and sublingual nitroglycerin as needed. Continue statin and atenolol. ISS; accuchecks ACHS. Rest of management as per Lakia Garcia PROGRAMMER OPERATOR NUMERICAL CONTROL-C's note, which I have reviewed and endorsed. Code Visit OBSV E&M: 78149 Initial observation care L2
--- NOTE | 2019-07-10 15:41 | EKG12_ITS ---
Test Reason : ADMISSION Blood Pressure : / mmHG Vent. Rate : 070 BPM Atrial Rate : 070 BPM P-R Int : 144 ms QRS Dur : 078 ms QT Int : 410 ms P-R-T Axes : 023 -15 001 degrees QTc Int : 442 ms Normal sinus rhythm Normal ECG When compared with ECG of 10-JUL-2019 13:01, MANUAL COMPARISON REQUIRED, DATA IS UNCONFIRMED Confirmed by JORDAN LOPEZ, FELIPA ([id number]), news video editor NATASHA ZHU ([id number]) on 07/13/2019 10:37:00 AM Referred By: Saritha Arce Confirmed By:MICHA ORTEGA MD
[2019-07-10 16:10] LABS: Bedside Glucose 81 mg/dL (70-110)
[2019-07-10 17:16] LABS: Hemoglobin A1c 6.8 % (4.2-6.3)
[2019-07-10] MEDS: Aspirin 81 MG TAB.CHEW PO (22:02)
[2019-07-10] MEDS: Atorvastatin Calcium 80 MG Tablet PO (22:03)
[2019-07-10] MEDS: Pantoprazole Sodium 40 MG Tablet PO (22:03)
[2019-07-10] MEDS: Lisinopril 5 MG Tablet PO (22:03)
[2019-07-10] MEDS: Atenolol 25 MG Tablet PO (22:05)
[2019-07-10 22:45] LABS: Bedside Glucose 78 mg/dL (70-110)
[2019-07-10] MEDS: Zolpidem Tartrate 5 MG Tablet PO ×2 (22:57→22:59)
[2019-07-10] MEDS: 0.9% Saline Lock 10 ML Syringe IV (22:57)
[2019-07-11] VITALS (14 sets, daily range): BP systolic 93–134; BP diastolic 48–82; PULSE 66–84; RESP 16–18; TEMP 36.1–37.2; O2SAT 91–98
--- NOTE | 2019-07-11 05:55 | EKG12_ITS ---
Test Reason : Blood Pressure : / mmHG Vent. Rate : 065 BPM Atrial Rate : 065 BPM P-R Int : 138 ms QRS Dur : 078 ms QT Int : 420 ms P-R-T Axes : 020 -02 023 degrees QTc Int : 436 ms Normal sinus rhythm Normal ECG When compared with ECG of 10-JUL-2019 15:41, MANUAL COMPARISON REQUIRED, DATA IS UNCONFIRMED Confirmed by JORDAN LOPEZ, FELIPA ([id number]), editor at large NATASHA ZHU ([id number]) on 07/13/2019 10:22:40 AM Referred By: Saritha Arce Confirmed By:MICHA ORTEGA MD
[2019-07-11 06:04] LABS: Cholesterol 122 mg/dL (200); High Density Lipoprotein 33 mg/dL; Triglycerides 140 mg/dL; Very Low Density Lipoprotein 28 mg/dL (5-40)
[2019-07-11] MEDS: 0.9% Normal Saline 1,000 ML 15 ML IV (06:48)
[2019-07-11 06:55] LABS: Bedside Glucose 123 mg/dL (70-110)
[2019-07-11] MEDS: Lisinopril 5 MG Tablet PO (07:18)
[2019-07-11] MEDS: Atenolol 25 MG Tablet PO (07:18)
[2019-07-11] MEDS: Aspirin 81 MG TAB.CHEW PO (07:18)
--- NOTE | 2019-07-11 08:18 | PCM.CONS.C ---
Problem List (1) Chest pain Status: Acute (2) CAD (coronary artery disease) Status: Chronic Reason for Consult Date of Consultation: 07/11/19 History of Present Illness: The patient is a 54 year old M who presents emergency room due to chest pain which began around 1030 this morning and resolved after approximately 2 hours. Patient reports he was walking to his car after work when he developed sudden onset midsternal chest pressure which radiated up the left side of his neck. He reports associated shortness of breath and diaphoresis. He also reports lightheadedness and feeling weak. Patient has a history of CAD with prior stent in 2003 at the age of 38 and reports his presenting symptoms feel similar to prior [place]. at bedside reports patient has appeared to be more short of breath with activity for the past several months although patient denies noticing increased shortness of breath and states it is just due to being overweight and out of shape. Patient states he has had 7 stress test that were normal since his stent was placed, most recently 2 years ago prior to left shoulder replacement surgery. His other past medical history includes hypertension, hyperlipidemia, type 2 diabetes mellitus, obesity. Patient apparently had a negative stress test 1 month before he ended up requiring PCI at the age of 38. Patient states that he has had chest pain on and off but usually goes away but this time it did not go away. Review of systems: All systems reviewed. All else is negative except that in the HPI. Past Medical History Allergies/Adverse Reactions: Allergies Iodinated Contrast Media [CONTRASTS] Allergy (Verified 07/10/19 13:04) Hives levofloxacin [From Levaquin] Allergy (Verified 07/10/19 13:04) Hives Home Medications: Ambulatory Orders Medication Instructions Recorded Aspirin [Aspirin, Baby] 81 mg PO DAILY@199903/17/18 Atenolol [Tenormin] 25 mg PO DAILY 03/17/18 Atorvastatin Calcium [Lipitor] 80 mg PO QHS 03/17/18 L.acidoph,Paracasei, B.lactis 1 each PO DAILY 03/17/18 [Probiotic] Zolpidem Tartrate [Ambien] 10 mg PO QHS 03/17/18 Glimepiride 2 mg PO DAILY 07/10/19 Lisinopril [Zestril] 5 mg PO DAILY 07/10/19 Pantoprazole Sodium [Protonix] 40 mg PO QHS 07/10/19 Past Medical History (Chronic Problems): Chronic Problems HTN (hypertension) (Chronic) HLD (hyperlipidemia) (Chronic) CAD (coronary artery disease) (Chronic) DM2 (diabetes mellitus, type 2) (Chronic) Surgical History: cholecystectomy, rotator cuff repair - Left shoulder surgery x3, - - Cardiac stent placement, hernia repair. Psychiatric History: No pertinent psych hx - *Family History Maternal History Items: Cancer - Ovarian, - - Heart failure Paternal History Items: Heart Disease - from [place] at age 42 Lives: Spouse/ Significant Other Smoking Status: Never smoker Tobacco Use: Non-smoker Alcohol: None Drugs: None Objective: Vital Signs Temp Pulse Resp BP Pulse Ox 97.0 F L 73 18 129/82 H 95 07/11/19 06:42 07/11/19 06:49 07/11/19 06:42 07/11/19 06:42 07/11/19 06:42 Oxygen Delivery Method Room Air Weight: 212 lb Body Mass Index (BMI) 33.2 Intake and Output for Last 24 Hours 07/09/19 07/10/19 07/11/19 23:59 23:59 23:59 Intake Total 382.5 / 382.5 0.25 / 0.25 Balance 382.5 / 382.5 0.25 / 0.25 General: Awake, Alert, Oriented x 3 HEENT: PERRL, EOMI, Sclera Non Icteric Neck: Supple, Good ROM, No Lymph Node Enlargement Lungs: Clear to auscultation Cardiovascular: Regular Rhythm, Normal S1, Normal S2, No Murmurs, No Rubs, No Gallops Abdomen: Soft Extremities: No edema Skin: No Rashes Psych/Mental Status: Appropriate 07/10/19 13:10: WBC 10.0, RBC 5.25, Hgb 15.9, Hct 46.7, MCV 89.0, MCH 30.3, MCHC 34.0, Plt Count 388, MPV 9.7, Immature Gran % (Auto) 0.400, Neut % (Auto) 54.7, Lymph % (Auto) 35.6, [place] % (Auto) 7.3, Eos % (Auto) 1.5, Baso % (Auto) 0.5, Absolute Neuts (auto) 5.5, Nucleated RBC % 0 07/10/19 13:10: Sodium 143, Potassium 4.1, Chloride 109 H, Carbon Dioxide 27.0, Anion Gap 7, BUN 11, Creatinine 1.34 H, Est GFR (MDRD) Af Amer 71, Est GFR (MDRD) Non-Af 59 L, BUN/Creatinine Ratio 8.2 L, Glucose 97, Calcium 9.0, Troponin I < 0.015 07/10/19 13:10: Hemoglobin A1c 6.8 H 07/10/19 16:15: Troponin I < 0.015 07/10/19 18:45: Troponin I < 0.015 07/11/19 05:25: Triglycerides 140, Cholesterol 122, LDL Cholesterol 61, VLDL Cholesterol 28, HDL Cholesterol 33 L Rhythm: EKG: ECHO: Stress Test: Cardiac Cath: PCI: CT Surgery: Holter monitor: EPS: PPM: CXR: Chest CT Scan: Assessment/Plan 1. Chest pain: I discussed treatment options with the patient in detail. Stress testing versus proceeding with coronary angiography was discussed. I think it is reasonable to proceed with coronary angiography as patient appears to be having worsening of his chest discomfort over time. Risks and benefits explained to the patient in detail and patient is willing to proceed. 2. Coronary artery disease: Continue present management.
--- NOTE | 2019-07-11 09:25 | CASEMGMT ---
According to pt's insurance, the following are in-network tertiary facilites: [facility], [facility], [facility], [facility], [facility], [facility] and . Julian PANG CM
[2019-07-11] MEDS: Acetaminophen 325 MG Tablet 650 MG PO (11:41)
[2019-07-11] MEDS: DiphenhydrAMINE 25 MG Capsule 50 MG PO (12:01)
[2019-07-11] MEDS: LORazepam 1 MG Tablet PO (12:01)
[2019-07-11 12:06] LABS: Bedside Glucose 96 mg/dL (70-110)
--- NOTE | 2019-07-11 12:25 | CHAPLAIN ---
Type of Pastoral Visit _x__ Initial Visit ___ Follow-up Visit ___ On-call Visit ___ General Patient Visit ___ Spiritual Assessment ___ Family Conference ___ Bereavement ___ Rapid Response ___ Code Blue ___ Other (describe below) Pastoral Care Referral From _x__ Patient ___ Family ___ Nurse ___ Physician ___ Skin Washer ___ Leasing Manager ___ Other (describe below) Sacrament/Intervention _x__ Active listening ___ Anointing ___ Rastafarian ___ Bereavement ___ Communion _x__ Sonal exploration ___ ___ Life review _x__ Prayer ___ Reconciliation ___ Sacrament of Sick _x__ Supportive presence ___ Wedding ___ Other (describe below) Pastoral Comments
--- NOTE | 2019-07-11 14:38 | PCM.DC ---
- Discharge Diagnoses Current Active Problems: Current Active and Chronic Problems Chest pain (Acute) You will use the following diet at home:: Cardiac Discharge Activity: Return to Normal Activity Call your doctor if you observe: Shortness of breath, Dizziness, Fainting spells, Chest pain Allergies/Adverse Reactions: Allergies Iodinated Contrast Media [CONTRASTS] Allergy (Verified 07/10/19 13:04) Hives levofloxacin [From Levaquin] Allergy (Verified 07/10/19 13:04) Hives Medications to take at Discharge Aspirin [Aspirin, Baby] 81 mg PO DAILY@199903/17/18 Atenolol [Tenormin] 25 mg PO DAILY 03/17/18 Atorvastatin Calcium [Lipitor] 80 mg PO QHS 03/17/18 L.acidoph,Paracasei, B.lactis [Probiotic] 1 each PO DAILY 03/17/18 Zolpidem Tartrate [Ambien] 10 mg PO QHS 03/17/18 Glimepiride 2 mg PO DAILY 07/10/19 Lisinopril [Zestril] 5 mg PO DAILY 07/10/19 Pantoprazole Sodium [Protonix] 40 mg PO QHS 07/10/19 Primary Care Physician: Jose A Bush MD [Primary Care Provider] - Please follow up with your Primary Care Physician in: 1 Week Test Results: Test results from this visit will be discussed in further detail at your follow-up appointment, if applicable. Please Follow Up With: Reema Beckwith MD When: 2-4 weeks for routine follow up, may see OIL SPOT WASHER/PA Proposed Discharge Date: 07/11/19
--- NOTE | 2019-07-11 14:43 | PCM.DC.SUM ---
Discharge Date and Diagnosis Date of Admission: 07/10/19 Date of Discharge: 07/11/19 - Primary Discharge Diagnosis Active and Suspected Problems 1. Chest pain, history of CAD status post stent (2003)-ACS ruled out 2. Hypertension 3. Hyperlipidemia 4. Type 2 diabetes mellitus 5. Obesity 6. GERD - Secondary Discharge Diagnosis Chronic Problems HTN (hypertension) (Chronic) HLD (hyperlipidemia) (Chronic) CAD (coronary artery disease) (Chronic) DM2 (diabetes mellitus, type 2) (Chronic) Hospital Course and Treatment Imaging Results: Diagnostic Data Chest X-Ray 07/10/19 13:25 IMPRESSION: Normal x-ray examination of the chest. Electronically Signed: Ar Katarinaserenajoe, at 13:43 EST , Service support , Dr. Beckwith- Cardiology Operations: None Procedures: Cardiac catheterization Summary of Care Provided: The patient is a 54 year old M admitted 07/10/2019 due to chest pain. 1. Chest pain, history of CAD status post stent (2003)-EKG without ST-T changes. Troponin negative. Given normal stress test two years ago, presenting sx similar to prior [place], cardiology consulted. Patient underwent cardiac catheterization which did not require any intervention. Final cath report pending. Continue medical management with aspirin, statin, beta-vj, lisinopril. Recommend routine follow-up with cardiology as outpatient. 2. Hypertension-stable, continue home atenolol, lisinopril regimen. 3. Hyperlipidemia- continue statin. 4. Type 2 diabetes mellitus-continue home oral regimen. 5. Obesity- encouraged diet and lifestyle modifications. 6. GERD-continue PPI. General: Alert, Oriented x3, Cooperative HEENT: Atraumatic, PERRLA, EOMI, Normocephalic Neck: Supple, No JVD, Negative Carotid Bruits Lungs: Clear to auscultation, Normal air movement Cardiovascular: Regular rate, Regular Rhythm, Normal S1, Normal S2, No murmurs Abdomen: Bowel Sounds Present, Soft, Non Tender, Non-Distended, Obese Extremities: No clubbing, No cyanosis, No edema, Capillary Refill Less than 3 Seconds Skin: No rashes, No breakdown Musculoskeletal: No Tenderness to Palpation of Joints or Extremities Neurological: Cranial nerves II-XII grossly intact, Neuro grossly intact Psych/Mental Status: Normal Affect, Appropriate Patient seen and examined prior to discharge. Physical assessment as noted above. Patient is stable for discharge with follow up recommendations as noted above. This patient was seen by NORRIS Villatoro under the supervision of Dr. Erwin. - Physical Exam Vitals/I&O's: Vital Signs Temp Pulse Resp BP Pulse Ox 98.4 F 68 16 108/53 L 91 07/11/19 13:10 07/11/19 14:00 07/11/19 14:00 07/11/19 14:00 07/11/19 14:00 Oxygen Delivery Method Room Air Weight: 212 lb Body Mass Index (BMI) 33.2 Intake and Output for Last 24 Hours 07/09/19 07/10/19 07/11/19 23:59 23:59 23:59 Intake Total 382.5 / 382.5 120.25 / 120.25 Balance 382.5 / 382.5 120.25 / 120.25 Laboratory Results 07/10/19 13:10: Hemoglobin A1c 6.8 H 07/10/19 15:57: POC Glucose 81 07/10/19 16:15: Troponin I < 0.015 07/10/19 18:45: Troponin I < 0.015 07/10/19 21:59: POC Glucose 78 07/11/19 05:25: Triglycerides 140, Cholesterol 122, LDL Cholesterol 61, VLDL Cholesterol 28, HDL Cholesterol 33 L 07/11/19 06:47: POC Glucose 123 H 07/11/19 11:37: POC Glucose 96 Current Medications Acetaminophen (Tylenol) 650 mg PO Q6H PRN PRN PRN Reason: Pain Score 1-3/Temp > 100.7 F Last Admin: 07/11/19 11:41 Dose: 650 mg Documented by: Aspirin (Aspirin, Baby) 81 mg PO DAILY@1999 [facility] Last Admin: 07/11/19 07:18 Dose: 81 mg Documented by: Atenolol (Tenormin (Beta Vj)) 25 mg PO DAILY [facility] Last Admin: 07/11/19 07:18 Dose: 25 mg Documented by: Atorvastatin Calcium (Lipitor) 80 mg PO QHS [facility] Last Admin: 07/10/19 22:03 Dose: 80 mg Documented by: Dextrose (D50w Syringe) 0 gm IV X1 PRN; Protocol PRN Reason: Hypoglycemia Glimepiride (Amaryl) 2 mg PO DAILY@0800 [facility] Glucagon () 1 mg IM .X1 PRN PRN Reason: Hypoglycemia Sodium Chloride () 1,000 mls @ 15 mls/hr IV .Q48H [facility] Last Infusion: 07/11/19 12:10 Dose: 15 mls/hr Documented by: Insulin Human Lispro (Humalog Kwikpen (Bkc)) 0 unit SC ACHS [facility]; Protocol Last Admin: 07/11/19 11:38 Dose: Not Given Documented by: Lisinopril (Zestril) 5 mg PO DAILY [facility] Last Admin: 07/11/19 07:18 Dose: 5 mg Documented by: Morphine Sulfate () 2 mg IV Q3H PRN PRN PRN Reason: Pain Score 6-10/10 Ondansetron HCl (Zofran) 4 mg IV Q8H PRN PRN PRN Reason: NAUSEA/VOMITING Pantoprazole Sodium (Protonix) 40 mg PO QHS [facility] Last Admin: 07/10/19 22:03 Dose: 40 mg Documented by: Sodium Chloride () 10 - 40 ml IV UD PRN PRN Reason: SALINE FLUSH Last Admin: 07/10/19 22:57 Dose: 10 ml Documented by: Zolpidem Tartrate (Ambien (Generic)) 5 mg PO QHS PRN PRN PRN Reason: SLEEP Last Admin: 07/10/19 22:59 Dose: 5 mg Documented by: Zolpidem Tartrate (Ambien (Generic)) 5 mg PO QHS [facility] Discharge Diet: Low fat/ Low Cholesterol Discharge Activity: Return to Normal Activity Call your doctor if you observe: Shortness of breath, Dizziness, Fainting spells, Chest pain Home Medications: Medications to take at Discharge Aspirin [Aspirin, Baby] 81 mg PO DAILY@199903/17/18 Atenolol [Tenormin] 25 mg PO DAILY 03/17/18 Atorvastatin Calcium [Lipitor] 80 mg PO QHS 03/17/18 L.acidoph,Paracasei, B.lactis [Probiotic] 1 each PO DAILY 03/17/18 Zolpidem Tartrate [Ambien] 10 mg PO QHS 03/17/18 Glimepiride 2 mg PO DAILY 07/10/19 Lisinopril [Zestril] 5 mg PO DAILY 07/10/19 Pantoprazole Sodium [Protonix] 40 mg PO QHS 07/10/19 Primary Care Physician: Jose A Bush MD [Primary Care Provider] - Please follow up with your Primary Care Physician in: 1 Week Please Follow Up With: Reema Beckwith MD When: 2-4 weeks for routine follow up, may see HYDROGRAPHIC ENGINEER/PA Disposition: Home Minutes spent on discharge:: 35 Patient Condition:: Stable Medical Necessity - Tobacco Use Smoking Status: Never smoker Tobacco Use: Non-smoker Meaningful Use Info Meaningful Use Diagnoses (Choose all that apply): None applicable
--- NOTE | 2019-07-14 12:48 | CL.D_ITS ---
Patient Name: ELEAZAR COVINGTON Study Date: 07/11/2019 Performing: Misty Beckwith MD Ht: 67 inches 170 cm : 1965 Wt: 211.9 lbs 96 kg Age: 54 Gender: male BSA: 2.07 PROCEDURE(S) PERFORMED IS00-VFO/COR/LV CLINICAL PROFILE AND INDICATIONS Indications: New Onset Angina <= 2 months Heart Failure: None Stress/Imaging Stress/Image Study Performed: No CAD Presentations: Unstable angina. CONCLUSIONS No significant obstructive stenoses. Patent prior stent in LAD with mild ISR. No significant or MR . Preserved EF RECOMMENDATIONS DESCRIPTION OF PROCEDURE The patient arrived to the procedure lab. The risks and benefits of the procedure as well as a full d escription of our services here and current unavailability of surgical backup were fully explained to the patient and/or their significant other prior to the catheterization. The Timeout was completed, verifying the correct patient and procedure. The patient's procedural site was prepped and draped in the usual fashion. Local anesthetic was given subcutaneously to right radial region with Lidocaine 2% . Using a modified Seldinger technique, arterial access was obtained via the right radial artery, a 6 Fr sheath was inserted. Left Coronary Artery selective angiography was performed in multiple views u sing a 5 Fr. JL3.5 catheter. Left Ventriculography was performed in BATEMAN projection using a 5 Fr.. LV to AO pullback pressures were then recorded. Right Coronary Artery selective angiography was then per formed in multiple views using a 5 Fr. JR 4 catheter.The arterial sheath was pulled and a TR Band was applied for hemostasis CORONARY ANGIOGRAPHY DOMINANCE: Right Dominant LEFT HEART ASSESSMENT Left Ventricular Ejection Fraction: by LV Gram 60 % LEFT MAIN: Mild luminal irregularities LEFT ANTERIOR DESCENDING ARTERY: mild diffuse disease. Mild ISR in pLAD stent CIRCUMFLEX ARTERY: PROX CIRC: 40 % Stenosis RIGHT CORONARY ARTERY: Mild luminal irregularities VALVE FINDINGS: No Aortic Valve Stenosis No Mitral Insufficency COMPLICATIONS No Complications PROCEDURE MEDICATIONS Versed 1 mg IV Fentanyl 50 mcg IV Heparin given IA 07/11/2019 12:42:12 Solu-cortef 100 mg IV 07/11/2019 12:29:19 Verapamil 2.5mg, Ntg 100mcgs, 3000 units of Heparin given IA 07/11/2019 12:42:12 SUMMARY OF HEMODYNAMIC DATA Time AIR REST ECG 12:27:22 AO 119/78 (99) SA 12:44:36 LV 147/-10, 11 12:49:30 LV 148/-8, 12 12:49:37 LV 142/-12, 8 12:50:16 LVp 139/-10, 12 12:50:27 AOp 126/61 (87) 12:50:32 Signed By Misty Beckwith MD On 07/14/2019 12:47:48 Misty Beckwith MD
== END 2019-07-11 14:49 | disposition home or self-care (01) ==
LOC: ED 13:41 → PCU 15:11
PROVIDERS: Nurse Practitioner Family; Admitting Provider Student in an Organized Health Care Education/Training Program; Emergency Provider Emergency Medicine; Family Provider Family Medicine; PCP Family Medicine; Referring Provider Student in an Organized Health Care Education/Training Program; Visit Provider Internal Medicine
DX: R07.89 Other chest pain (principal); I25.110 Atherosclerotic heart disease of native coronary artery with unstable angina pectoris; E11.9 Type 2 diabetes mellitus without complications; I10 Essential (primary) hypertension; K21.9 Gastro-esophageal reflux disease without esophagitis; E78.5 Hyperlipidemia, unspecified; I25.2 Old myocardial infarction; E66.9 Obesity, unspecified; Z68.33 Body mass index [BMI] 33.0-33.9, adult; Z71.3 Dietary counseling and surveillance; Z95.5 Presence of coronary angioplasty implant and graft; Z86.73 Personal history of transient ischemic attack (TIA), and cerebral infarction without residual deficits; Z79.899 Other long term (current) drug therapy; Z79.82 Long term (current) use of aspirin; Z79.84 Long term (current) use of oral hypoglycemic drugs
CPT/HCPCS: 36415; 71045; 80048; 80061; 82962; 83036; 84484; 85025; 93005; 93458; 96360; 96361; 99152; 99153; 99218; 99285; J7030; A4216; C1769; C1894; G0378; Q9967

== ENCOUNTER → 2020-02-19 | Outpatient (CLI) | payer OTHER, SELFPAY ==
[2020-01-27 15:03] VITALS: BMI 34.2
--- NOTE | 2020-02-19 15:02 | ECHOD_ITS ---
Reason For Study: EDEMA Procedure This was a 2D Doppler, Color Flow transthoracic echocardiogram. Exam performed in department. Left Ventricle Normal LV size. The estimated ejection fraction is 55 %. No evidence for diastolic dysfunction. No regional wall motion abnormalities noted. Right Ventricle Normal RV size. Normal systolic function. Atria The left atrium is mildly enlarged. Normal right atrium. No doppler evidence for ASD. Mitral Valve There is no mitral valve stenosis. No mitral valve insufficiency. Tricuspid Valve There is no tricuspid stenosis. No tricuspid valve insufficiency. Aortic Valve There is no aortic stenosis. No aortic valve insufficiency. Pulmonic Valve There is no pulmonic valvular stenosis. Trivial pulmonic valve insufficiency. Great Vessels Normal aortic root. Pericardium/Pleural No pericardial effusion. MMode/2D Measurements & Calculations LVIDd: 5.2 cm IVSd: 1.2 cm Ao root diam: 3.2 cm LVIDs: 3.4 cm LVPWd: 1.2 cm RVDd: 3.0 cm FS: 34.1 % LAV(MOD-bp): 60.0 ml LA A4 area: 19.8 cm2 LA dimension(2D): 4.0 cm LAV(MOD-bp) Indexed: 28.5 ml/m2 LAV(MOD-sp2): 57.5 ml LAV(MOD-sp4): 62.1 ml RA A4 area: 13.5 cm2 Doppler Measurements & Calculations MV E max luca: 54.5 cm/sec Lat Peak E' Luca: 7.7 cm/sec Med Peak E' Luca: 8.7 cm/sec MV A max luca: 72.9 cm/sec E/E' lat: 7.1 E/E' med: 6.3 MV E/A: 0.75 Ao V2 max: 86.7 cm/sec LV V1 max: 74.6 cm/sec PA V2 max: 106.7 cm/sec Ao max P.0 mmHg LV V1 max P.2 mmHg Interpretation Summary The estimated ejection fraction is 55 %. No evidence for diastolic dysfunction. The left atrium is mildly enlarged. Ordering Physician: Reema Beckwith Referring Physician: Jose A Bush Performed By: Marian Savage RVT, RDCS and Student
== END | disposition home or self-care (01) ==
LOC: CVS 15:02
PROVIDERS: PCP Family Medicine; Referring Provider Specialist; Visit Provider Specialist
DX: I10 Essential (primary) hypertension (principal); I25.10 Atherosclerotic heart disease of native coronary artery without angina pectoris; Z95.5 Presence of coronary angioplasty implant and graft
CPT/HCPCS: 93306

== ENCOUNTER 2020-05-16 09:28 | Emergency (ER) | payer OTHER, SELFPAY ==
[2020-01-27 15:03] VITALS: BMI 34.2
[2020-05-16 09:29] VITALS: BP 155/95; BP 164/106; PULSE 87; PULSE 91; RESP 22; RESP 24; TEMP 36.3; O2SAT 98; O2SAT 99; BMI 34.4
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
[2020-05-16] MEDS: 0.9% Normal Saline 1,000 ML 999 ML IV (09:46)
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
[2020-05-16] MEDS: Ondansetron 4 MG/2 ML Vial IV (09:53)
[2020-05-16 09:55] LABS: Absolute Lymphocyte Count 4.83 X10^3/uL (0.83-4.51); Absolute Neutrophil Count 7.2 X10^3/uL (2.0-7.7); Basophil# 0.05 X10^3/uL; Basophil% 0.4 % (0-1); Eosinophil# 0.03 X10^3/uL; Eosinophils% 0.2 % (0-5); Hemoglobin 15.6 g/dL (13.0-16.5); Lymphocyte # 4.83 X10^3/ul (4.0); Lymphocyte % 37.3 % (19-41); Mean Corp Hgb Conc 33.2 g/dL (32-36); Mean Corpuscular Hgb 29.4 pg (27.0-32.0); Mean Corpuscular Volume 88.5 fL (80-94); Mean Platelet Vol. 8.9 fl (6.2-12.0); Monocyte# 0.71 X10^3/uL; Monocyte% 5.5 % (0-10); NRBC Flagged by Analyzer 0 % (0-5); Neutrophil # 7.21 X10^3/uL (2.7-7.7); Neutrophil % 55.7 % (47-70); Platelet Count 357 K/mm3 (150-450); RBC Distribution Width CV 13.3 % (11.6-14.6); RBC Distribution Width SD 43.4 fl (35.1-43.9); Red Blood Count 5.31 M/mm3 (4.6-6.2); White Blood Count 12.9 K/mm3 (4.4-11.0)
[2020-05-16] MEDS: DiphenhydrAMINE 50 MG/ML Syringe 25 MG IV (09:55)
[2020-05-16] MEDS: fentaNYL 100 MCG/2 ML Ampul 50 MCG IV (09:57)
[2020-05-16] MEDS: MethylPREDNISolone 125 MG/2 ML Vial IV (09:57)
[2020-05-16 10:08] LABS: AST(SGOT) 62 U/L (15-37); Alanine Aminotransfer ALT/SGPT 104 U/L (16-61); Albumin, Serum 4.1 g/dL (3.2-5.0); Alkaline Phosphatase 85 U/L (45-117); Anion Gap 7 (5-15); BUN 18 mg/dL (7-18); BUN/Creat Ratio 12.9 RATIO (10-20); Bilirubin, Direct 0.19 mg/dL (0.00-0.30); Calcium,Total 8.7 mg/dL (8.5-10.1); Chloride 106 mmol/L (98-107); EST Glomerular Filtration Rate 56 mL/min (>60); Est Glom Filt Rate - Afr Amer 67 mL/min (>60); Estimated Creatinine Clearance 55.08 ml/min; Globulin 3.3 g/dL (2.2-4.2); Glucose 165 mg/dL (74-106); Potassium 3.7 mmol/L (3.5-5.1); Protein, Total 7.4 g/dL (6.4-8.2); Sodium Level 139 mmol/L (136-145)
[2020-05-16 10:09] LABS: Prothrombin Time (Protime)PT. 12.3 SECONDS (11.7-14.9)
[2020-05-16 10:58] VITALS: BP 155/84; PULSE 91; RESP 20; O2SAT 99
[2020-05-16] MEDS: HYDROmorphone 0.5 MG/0.5 ML SYRINGE IV (11:02)
[2020-05-16] MEDS: Diphth,Pertuss(Acell),Tet Vac 0.5 ML Vial IM (11:08)
[2020-05-16 11:31] VITALS: BP 150/82; PULSE 87; RESP 18; O2SAT 99
[2020-05-16 12:06] VITALS: BP 143/77; PULSE 91; RESP 18; TEMP 36.3; O2SAT 98
== END 2020-05-16 12:23 | disposition short-term general hospital (02) ==
PROVIDERS: Emergency Provider Physician Assistant Medical; PCP Family Medicine
DX: S51.011A Laceration without foreign body of right elbow, initial encounter (principal); S22.43XA Multiple fractures of ribs, bilateral, initial encounter for closed fracture; S30.1XXA Contusion of abdominal wall, initial encounter; S00.01XA Abrasion of scalp, initial encounter; S70.312A Abrasion, left thigh, initial encounter; S40.812A Abrasion of left upper arm, initial encounter; S40.811A Abrasion of right upper arm, initial encounter; S00.81XA Abrasion of other part of head, initial encounter; I10 Essential (primary) hypertension; I25.10 Atherosclerotic heart disease of native coronary artery without angina pectoris; E78.5 Hyperlipidemia, unspecified; Z23 Encounter for immunization; V53.5XXA Driver of pick-up truck or van injured in collision with car, pick-up truck or van in traffic accident, initial encounter; Y93.I9 Activity, other involving external motion; Y92.410 Unspecified street and highway as the place of occurrence of the external cause; Y99.8 Other external cause status
CPT/HCPCS: 12002; 70450; 71260; 72125; 72170; 74177; 80048; 80076; 85025; 85610; 90715; 93005; 96361; 96374; 96375; 99285; Q9967; J2405

== ENCOUNTER → 2022-08-21 | Outpatient (CLI) | payer OTHER, SELFPAY ==
--- NOTE | 2022-08-21 15:14 | STRESSREP ---
Stress Test Report Exercise myocardial perfusion stress test. 57-year-old man with a history of chest pain Stress protocol: Resting EKG demonstrates normal sinus rhythm with a rate of 76 bpm resting blood pressure is 140/84 mmHg. The patient exercised according to the regular Connor protocol for a total duration of 5 minutes attaining a maximum heart rate of 148 bpm which was 91 of max impacted heart rate the maximum workload was 7 metabolic equivalents. At rest there were no ST or T wave changes noted suggest ischemia and at peak exercise upsloping ST changes only were noted we did not meet the criteria for ischemia. No clinical angina was noted the test was terminated due to the target heart rate being achieved. The peak blood pressure was 178/80 mmHg. Rate-pressure product was 20,300. Myocardial perfusion protocol. 14.8 mCi of technetium 99m sestamibi was injected at rest. The patient exercised according to regular Connor protocol for total duration of 5 minutes and at peak exercise 44.3 mCi of technetium 99m sestamibi was injected stress images were obtained stress and rest images were reconstructed in comparing the short axis vertical long and horizontal long axis. Gated images were also obtained. Perfusion SPECT analysis: Review of the stress images demonstrate normal uptake of tracer noted in all areas of the myocardium. The resting images similarly demonstrate normal uptake of tracer noted in all areas of the myocardium. No areas of reversibility are noted to suggest ischemia no previous infarct was noted. Gated SPECT analysis: The gated ejection fraction is 69. Conclusion: Normal exercise myocardial perfusion stress test at a moderate workload. Preserved ejection fraction.
== END | disposition home or self-care (01) ==
LOC: CVS 07:04
PROVIDERS: PCP Family Medicine; Visit Provider Nurse Practitioner Gerontology
DX: R07.9 Chest pain, unspecified (principal); Z95.5 Presence of coronary angioplasty implant and graft
CPT/HCPCS: 78452; 93017; A9500; A4216

== ENCOUNTER 2023-05-18 21:20 | Emergency (ER) | payer OTHER, SELFPAY ==
[2023-05-18 21:22] VITALS: BP 169/89; PULSE 117; RESP 18; TEMP 38; BMI 35.6
[2023-05-18 21:26] VITALS: BP 169/89; PULSE 117; RESP 16; TEMP 38
--- NOTE | 2023-05-18 21:33 | EX.ED.VISEXT ---
HPI History of Present Illness Chief Complaint: Bite Detail of Chief Complaint: Dog bite to distal right forearm and fever Informant: patient Occured/Mechanism Comment: Dog bite while at work Onset/Context/Timing Onset: Today (Approximately 8:30 AM) Context: Sudden Onset Timing: Continuous Quality of Pain: Dull and Aching Location: Distal right forearm Current Severity: Mild Maximum Severity: Moderate Worsened by: Movement and palpation Relieved by: Nothing Associated Symptoms Associated Symptoms: Negative for Parasthesia, Weakness or Loss of Funtion Narrative Narrative: Patient is a 58-year-old [id number] male with history of type 2 diabetes, hyperlipidemia, coronary disease who presents because of dog bite to his right forearm that occurred this morning at work. Tetanus is up-to-date. Dog's immunizations up-to-date. Patient denies allergy to penicillin. Patient denies upper respiratory tract infectious symptoms. Patient denies GI or symptoms. Patient's had clear drainage from the bite rush. He has been applying triple antibiotic ointment to the puncture wounds. He denies paresthesia, anesthesia or motor weakness. Tetanus Immunization: 5-10 years Prior similar symptoms: No Recent Illness/Hospitalization: No ROS ROS ED Constitutional Constitutional ED: Reports fever(s); Denies chills or sweats Eyes Eyes: Denies blurry vision or change in vision ENT ENT ED: Denies rhinorrhea Cardiovascular Cardiovascular: Reports other Details: There is no history rheumatic fever, heart murmur, mitral valve prolapse and patient is on no immunosuppressive meds. ; Denies chest pain or palpitations Respiratory/Chest Respiratory/Chest: Denies dyspnea or dyspnea on exertion Gastrointestinal Gastrointestinal: Denies nausea or vomiting Integumentary Reports other Details: Puncture wounds due to dog bite dorsal and volar surface distal right forearm Neurologic Neurologic: Denies paresthesias or weakness Psychiatric Psychiatric: Denies anxiety Hematologic/Lymphatic Hematologic/Lymphatic: Denies easy bleeding or easy bruising [facility] Medical History Atherosclerosis of coronary artery of [place] heart without angina pectoris Essential hypertension Type 2 diabetes mellitus without complication Home Medications atenolol 25 mg tablet 25 mg PO DAILY bp/heart 03/17/18 [History Last Taken 07/09/19] atorvastatin 80 mg tablet 80 mg PO QHS cholesterol 03/17/18 [History Last Taken 07/09/19] zolpidem 10 mg tablet 10 mg PO QHS sleep 03/17/18 [History Last Taken 07/09/19] pantoprazole 40 mg tablet,delayed release 40 mg PO QHS 07/10/19 [History Last Taken 07/09/19] cetirizine 10 mg tablet 10 mg PO DAILY 07/28/19 [History Last Taken Unknown] losartan 25 mg tablet 25 mg PO DAILY 01/27/20 [History Last Taken Unknown] hydrochlorothiazide 12.5 mg tablet 12.5 mg PO DAILY 09/30/20 [History Last Taken Unknown] aspirin 81 mg tablet,delayed release (Adult Aspirin Regimen) 81 mg PO DAILY 06/29/21 [History Last Taken Unknown] glimepiride 4 mg tablet 6 mg PO QAM 07/28/22 [History Last Taken Unknown] nitroglycerin 0.4 mg sublingual tablet 0.4 mg sublingual Q5-15M PRN chest pain #25 tabs 07/28/22 [Rx Last Taken Unknown] sitagliptin phosphate 100 mg tablet (Januvia) 100 mg PO DAILY 07/28/22 [History Last Taken Unknown] amoxicillin 875 mg-potassium clavulanate 125 mg tablet 875 mg (0.875 x 875-125 mg) PO Q12H #14 TABLETS 05/18/23 [Rx Last Taken Unknown] Allergy/AdvReac Type Severity Reaction Status Date / Time Iodinated Contrast Media Allergy Hives Verified 05/18/23 21:21 [CONTRASTS] levofloxacin [From Levaquin] Allergy Hives Verified 05/18/23 21:21 lisinopril AdvReac Intermediate cough Verified 05/18/23 21:21 Family History Father , Age 42 Myocardial infarction Brother Myocardial infarction, Onset Age: 55 Brother Myocardial infarction, Onset Age: 62 Sister Heart disease Mother Heart disease CHF Cancer cancer Surgical History History of carpal tunnel release of both wrists History of cholecystectomy History of coronary artery stent placement (09/15/02) History of fusion of cervical spine History of left heart catheterization (07/11/19) History of shoulder replacement History of shoulder surgery History of umbilical hernia repair Social History Smoking Status: Never smoker alcohol intake: current alcohol intake frequency: a few times a week substance use type: does not use caffeine: Yes Type: coffee Number of servings: 3 EXAM Physical Exam Const Vital Signs: 05/18/23 21:22 05/18/23 21:26 Temperature 100.4 F H 100.4 F H Temperature Source Oral Oral Pulse Rate 117 H 117 H Respiratory Rate 18 16 Blood Pressure 169/89 H 169/89 H Blood Pressure Mean 115 115 Positive well nourished, well developed and obese General Appearance ED: well developed and NAD Nutritional Appearance: obese HEENT Reports moist mucous membranes normocephalic and atraumatic Eyes PERRL and EOMs intact bilaterally Neck full ROM Resp normal respiratory effort and clear to auscultation bilaterally Cardio regular rhythm, S1 normal heart sound, S2 normal heart sound and no murmurs Rate: tachycardic Extremity full ROM; Negative for normal to inspection Extremity Narrative: Axillary, median, radial and ulnar function intact. Patient has puncture wounds due to dog bite volar surface and dorsal surface of the distal right forearm. Radial pulses palpable. The extensor and flexor mechanisms are intact. There is no erythema, warmth, induration, purulent drainage or lymphangitis noted. Neuro oriented x3, CN's II-XII intact bilaterally and no sensory deficits noted Sensorium / Orientation: alert Psych mental status grossly normal and thought process normal Skin Skin Narrative: Documented under the extremity portion of the EMR MDM MDM MDM Narrative Medical decision making narrative: Patient probably has early infection from dog bite. X-ray was obtained to evaluate for tooth fragments that may be retained. Since he is diabetic BMP was obtained to assess glucose, anion gap and renal function. CBC to assess white count differential. Patient was treated with 3.0 g of Unasyn IV piggyback. Lab Data Attestation: I reviewed the patient's lab results. Lab results narrative: Is elevated 16.4 thousand with slight shift. There is no bandemia. There is no toxic granulations. Metabolic panel is marked for glucose of 218 with a normal CO2 and anion gap. Renal function is normal. Plan is discharged home with prescription for Augmentin. Labs: Laboratory Results - last 24 hr 05/18/23 21:40 WBC 16.4 H RBC 4.99 Hgb 14.8 Hct 44.0 MCV 88.2 MCH 29.7 MCHC 33.6 RDW Std Deviation 43.2 RDW Coeff of Noam 13.4 Plt Count 303 MPV 9.3 Immature Gran % (Auto) 0.400 Neut % (Auto) 76.3 H Lymph % (Auto) 15.7 L [place] % (Auto) 6.3 Eos % (Auto) 0.9 Baso % (Auto) 0.4 Absolute Neuts (auto) 12.5 H Absolute Lymphs (auto) 2.56 Nucleated RBC % 0 Sodium 138 Potassium 3.6 Chloride 107 Carbon Dioxide 25.0 Anion Gap 6 BUN 14 Creatinine 1.26 Estim Creat Clear Calc 56.96 Est GFR (MDRD) Af Amer 75 Est GFR (MDRD) Non-Af 62 BUN/Creatinine Ratio 11.1 Glucose 218 H Calcium 8.9 Radiography Chest X-Ray - ED: 2 View (X-ray of the right forearm was independent reviewed interpreted by me at 2155. There is no evidence of fracture or retained foreign body i.e. tooth fragment.) Discharge Plan Triage Chief Complaint: Bite ED Provider: Hector Cunha Dx/Rx/DC Orders Clinical Impression: Dog bite of right forearm with infection, Sinus tachycardia seen on lunchroom monitor, Type 2 diabetes mellitus with hyperglycemia Instructions: ED Dog Bite Prescriptions: New amoxicillin-pot clavulanate [amoxicillin-pot clavulanate] 875-125 mg tablet 875 mg PO Q12H Qty: 14 0RF No Action cetirizine 10 mg tablet 10 mg PO DAILY losartan 25 mg tablet 25 mg PO DAILY hydrochlorothiazide 12.5 mg tablet 12.5 mg PO DAILY aspirin [Adult Aspirin Regimen] 81 mg tablet,delayed release (DR/EC) 81 mg PO DAILY glimepiride 4 mg tablet 6 mg PO QAM Patient Comments: TAKE 1 & 1/2 TABLETS BYCMOUTH EVERY MORNING BEFORE BREAKFAST Januvia 100 mg tablet 100 mg PO DAILY Patient Comments: TAKE 1 TABLET BY MOUTHNONCE DAILY nitroglycerin 0.4 mg tablet, sublingual 0.4 mg sublingual Q5-15M PRN (Reason: chest pain) Qty: 25 3RF Rx Instructions: do not exceed 3 doses per episode atorvastatin 80 MG tablet 80 mg PO QHS atenolol 25 MG tablet 25 mg PO DAILY zolpidem 10 MG tablet 10 mg PO QHS pantoprazole 40 MG tablet 40 mg PO QHS Patient Comments: TAKE 1 TABLET BY MOUTH ONCE DAILY Primary Care Provider: Jose A Bush Referrals: [facility] [Group of Physicians] - 2 Days for wound check Jose A Bush MD [Primary Care Provider] - Activity Restrictions/Additional Instructions: 1. If your blood sugar is greater than 350 return to the emergency department 2. If you have colored drainage from your wounds, red streak up your forearm towards your elbow or red warm rash return to the emergency department 3. Take antibiotics as prescribed until gone. Disposition Disposition: Home, Self Care
[2023-05-18] MEDS: Ampicillin/Sulbactam 3 GM in 0.9% Normal Saline (100mL MB+) 100 ML IV (21:45)
[2023-05-18 21:47] LABS: Absolute Lymphocyte Count 2.56 X10^3/uL (0.83-4.51); Absolute Neutrophil Count 12.5 X10^3/uL (2.0-7.7); Basophil# 0.06 X10^3/uL; Basophil% 0.4 % (0-1); Eosinophil# 0.14 X10^3/uL; Eosinophils% 0.9 % (0-5); Hemoglobin 14.8 g/dL (13.0-16.5); Lymphocyte # 2.56 X10^3/ul (0.83-4.51); Lymphocyte % 15.7 % (19-41); Mean Corp Hgb Conc 33.6 g/dL (32-36); Mean Corpuscular Hgb 29.7 pg (27.0-32.0); Mean Corpuscular Volume 88.2 fL (80-94); Mean Platelet Vol. 9.3 fl (6.2-12.0); Monocyte# 1.03 X10^3/uL; Monocyte% 6.3 % (0-10); NRBC Flagged by Analyzer 0 % (0-5); Neutrophil # 12.49 X10^3/uL (2.7-7.7); Neutrophil % 76.3 % (47-70); Platelet Count 303 K/mm3 (150-450); RBC Distribution Width CV 13.4 % (11.6-14.6); RBC Distribution Width SD 43.2 fl (35.1-43.9); Red Blood Count 4.99 M/mm3 (4.6-6.2); White Blood Count 16.4 K/mm3 (4.4-11.0)
--- NOTE | 2023-05-18 21:50 | RAD_ITS ---
INDICATION: Injury/Pain -- Dog bite distal right forearm EXAMINATION/TECHNIQUE: X-RAY - RIGHT XR Forearm 2 Views 2 VIEWS COMPARISON: none FINDINGS: Mild distal forearm edema. No subcutaneous soft tissue emphysema. No radiopaque foreign body. Peripheral atherosclerosis noted BONES/JOINTS: No acute fracture.. Normal alignment. No sclerotic or destructive changes observed. RAD/Forearm 2 Views IMPRESSION: Distal forearm edema without radiodense foreign body or fracture. . Electronically Signed: Jackson Coello MD at 22:20 EDT ,
[2023-05-18 22:03] LABS: Anion Gap 6 (5-15); BUN 14 mg/dL (7-18); BUN/Creat Ratio 11.1 RATIO (10-20); Calcium,Total 8.9 mg/dL (8.5-10.1); Chloride 107 mmol/L (98-107); Creatinine, Serum 1.26 mg/dL (0.70-1.30); EST Glomerular Filtration Rate 62 mL/min (>60); Est Glom Filt Rate - Afr Amer 75 mL/min (>60); Estimated Creatinine Clearance 56.96 ml/min; Glucose 218 mg/dL (74-106); Potassium 3.6 mmol/L (3.5-5.1); Sodium Level 138 mmol/L (136-145)
== END 2023-05-18 22:39 | disposition home or self-care (01) ==
LOC: ED 22:08
PROVIDERS: Emergency Provider Emergency Medicine; PCP Family Medicine; Visit Provider Emergency Medicine
DX: S51.851A Open bite of right forearm, initial encounter (principal); E11.65 Type 2 diabetes mellitus with hyperglycemia; E78.5 Hyperlipidemia, unspecified; I25.10 Atherosclerotic heart disease of native coronary artery without angina pectoris; R50.9 Fever, unspecified; R00.0 Tachycardia, unspecified; I10 Essential (primary) hypertension; E66.9 Obesity, unspecified; L08.9 Local infection of the skin and subcutaneous tissue, unspecified; W54.0XXA Bitten by dog, initial encounter
CPT/HCPCS: 73090; 80048; 85025; 96365; 99284; J7050; A4216; J0295

== ENCOUNTER 2023-11-12 09:38 | Emergency (ER) | payer OTHER, SELFPAY ==
[2023-11-12 09:39] VITALS: BP 134/91; PULSE 89; RESP 18; TEMP 35.9; O2SAT 97; BMI 35.6
--- NOTE | 2023-11-12 09:46 | EDS_ITS ---
HPI History of Present Illness Chief Complaint: Dizziness Informant: patient Onset/Context/Timing Onset: Today Context: Sudden Onset Timing: Continuous Quality: Like being drunk Location: Head Worsened by: Turning head Relieved by: Remaining still Narrative Narrative: Patient presents with dizziness that began yesterday. Patient states she has been constant since yesterday. Patient states he had had several episodes of this over the years. Patient states it feels like being drunk without any of the good stuff. Patient states it is worse whenever he turns his head. Patient states it is better when he remains still. Patient admits to some tinnitus and some decrease in his hearing recently. Patient denies any fevers or chills. Patient admits to some blurred vision out of his right eye. Patient also admits to a mild headache. Prior similar symptoms: Yes PFSH [facility] Medical History Atherosclerosis of coronary artery of [place] heart without angina pectoris Essential hypertension Type 2 diabetes mellitus without complication Home Medications atenolol 25 mg tablet 25 mg PO DAILY bp/heart 03/17/18 [History Last Taken 07/09/19] zolpidem 10 mg tablet 10 mg PO QHS sleep 03/17/18 [History Last Taken 07/09/19] pantoprazole 40 mg tablet,delayed release 40 mg PO QHS 07/10/19 [History Last Taken 07/09/19] losartan 25 mg tablet 25 mg PO DAILY 01/27/20 [History Last Taken Unknown] hydrochlorothiazide 12.5 mg tablet 12.5 mg PO DAILY 09/30/20 [History Last Taken Unknown] glimepiride 4 mg tablet 6 mg PO QAM 07/28/22 [History Last Taken Unknown] nitroglycerin 0.4 mg sublingual tablet 0.4 mg sublingual Q5-15M PRN chest pain #25 tabs 07/28/22 [Rx Last Taken Unknown] sitagliptin phosphate 100 mg tablet (Januvia) 100 mg PO DAILY 07/28/22 [History Last Taken Unknown] meclizine 25 mg tablet 25 mg PO TID PRN PRN dizziness #20 tabs 11/12/23 [Rx Last Taken Unknown] metformin 500 mg tablet,extended release 24 hr 500 mg PO DAILY 11/12/23 [History Last Taken Unknown] rosuvastatin 40 mg tablet 40 mg PO DAILY 11/12/23 [History Last Taken Unknown] Allergy/AdvReac Type Severity Reaction Status Date / Time Iodinated Contrast Media Allergy Hives Verified 08/27/23 13:58 [CONTRASTS] levofloxacin [From Levaquin] Allergy Hives Verified 08/27/23 13:58 lisinopril AdvReac Intermediate cough Verified 08/27/23 13:58 Family History Father , Age 42 Myocardial infarction Brother Myocardial infarction, Onset Age: 55 Brother Myocardial infarction, Onset Age: 62 Sister Heart disease Mother Heart disease CHF Cancer cancer Surgical History History of carpal tunnel release of both wrists History of cholecystectomy History of coronary artery stent placement (09/15/02) History of fusion of cervical spine History of left heart catheterization (07/11/19) History of shoulder replacement History of shoulder surgery History of umbilical hernia repair Social History Smoking Status: Never smoker alcohol intake: current alcohol intake frequency: a few times a week substance use type: does not use caffeine: Yes Type: coffee Number of servings: 3 ROS ROS ED Constitutional Constitutional ED: Denies chills or fever(s) Eyes Eyes: Reports blurry vision right; Denies diplopia ENT ENT ED: Denies rhinorrhea or sore throat Cardiovascular Cardiovascular: Reports chest pain; Denies palpitations Respiratory/Chest Respiratory/Chest: Denies cough or dyspnea Gastrointestinal Gastrointestinal: Denies nausea or vomiting Genitourinary Genitourinary ED: Denies dysuria or hematuria Musculoskeletal Musculoskeletal: Denies back pain or neck pain Integumentary Denies abscess or rash Neurologic Neurologic: Reports headache(s); Denies weakness Allergic/Immunologic Allergic/Immunologic ED: Denies mouth swelling or urticaria EXAM Physical Exam Const Vital Signs: 11/12/23 09:39 11/12/23 09:45 11/12/23 11:39 Temperature 96.7 F L Temperature Source Temporal Pulse Rate 89 79 Respiratory Rate 18 18 Respiratory Effort Normal Non-Labored Respiratory Pattern Normal Blood Pressure 134/91 H 137/82 H Blood Pressure Mean 105 100 Pulse Ox 97 97 Oxygen Delivery Method Room Air Room Air Positive well nourished and well developed General Appearance ED: well developed and NAD HEENT Reports TM's clear and moist mucous membranes Tympanic Membrane ED: Yes TM's clear bilateral Eyes PERRL and EOMs intact bilaterally Eyes Narrative: There is nystagmus with right lateral gaze. Neck supple and no JVD Chest Wall inspection of chest normal and palpation of chest normal Resp normal respiratory effort and clear to auscultation bilaterally Cardio regular rate and regular rhythm GI non-tender and non-distended Palpation: soft Extremity normal to inspection Neuro oriented x3, CN's II-XII intact bilaterally and no sensory deficits noted Sensorium / Orientation: alert Motor Exam: strength 5/5 throughout Psych mental status grossly normal MDM MDM MDM Narrative Medical decision making narrative: Differential diagnosis includes vertigo, labyrinthitis, intracranial bleeding, cardiac dysrhythmia, cardiac ischemia, electrolyte abnormality, and viral infection. EKG will be obtained to assess for cardiac dysrhythmia and cardiac ischemia. CT scan of the brain will be obtained to assess for intracranial bleeding and stroke. CBC will be obtained to assess for leukocytosis and anemia. Basic metabolic profile will be obtained to assess for electrolyte abnormality and renal function. Lab Data Attestation: I reviewed the patient's lab results. Lab results narrative: CBC was reviewed and was within normal limits. Basic metabolic profile was reviewed. Creatinine was slightly elevated at 1.4 but this is consistent with prior results. The remainder is within normal limits. High-sensitivity troponin was reviewed and was normal at 3. Labs: Laboratory Results - last 24 hr 11/12/23 09:47 WBC 8.5 RBC 5.39 Hgb 15.9 Hct 47.0 MCV 87.2 MCH 29.5 MCHC 33.8 RDW Std Deviation 41.4 RDW Coeff of Noam 13.1 Plt Count 333 MPV 9.2 Immature Gran % (Auto) 0.600 Neut % (Auto) 55.3 Lymph % (Auto) 33.1 [place] % (Auto) 6.8 Eos % (Auto) 3.3 Baso % (Auto) 0.9 Absolute Neuts (auto) 4.7 Absolute Lymphs (auto) 2.81 Nucleated RBC % 0 Sodium 139 Potassium 4.0 Chloride 104 Carbon Dioxide 29.0 Anion Gap 6 BUN 14 Creatinine 1.40 H Estim Creat Clear Calc 63.00 Est GFR (MDRD) Af Amer 67 Est GFR (MDRD) Non-Af 55 L BUN/Creatinine Ratio 10.0 Glucose 224 H Calcium 9.2 Troponin I High Sens 3 Radiography Diagnostic Testing: Clinical Impression(s) from Imaging Studies Brain CT 11/12/23 10:05 IMPRESSION: Normal unenhanced CT scan of the brain. No acute abnormality is seen. Electronically Signed: Ar Tenorio MD at 11:00 EDT , CT scan of the brain was obtained. There is no acute intracranial abnormality. This was interpreted by the radiologist and was also independently reviewed by myself. EKG Initial EKG: Attestation: I personally reviewed and interpreted this EKG as follows: Interpretation: Sinus Rhythm (86) and No Acute Injury Pattern Comments: EKG was obtained. On my independent interpretation, it showed a normal sinus rhythm with a rate of 86. CO interval, QRS interval, and QTc intervals were all normal. [place] was normal. There are no acute ST or T wave changes. Prior EKG tracings: available for review Prior: Unchanged (05/16/2020) Treatment and Re-Evaluation :: Patient was given IV fluids and Valium. Patient had minimal improvement after Valium. Patient was given a dose of meclizine. Patient felt better after this. Patient was advised of his findings. Patient was given a prescription for meclizine. Patient was instructed to follow-up with ENT in 2 days as scheduled. Patient understood and was agreeable with the plan. All questions were answered. Discharge Plan Triage Chief Complaint: Dizziness ED Provider: Mukund Garcia Dx/Rx/DC Orders Clinical Impression: Vertigo, Essential hypertension Instructions: ED Vertigo, Unspecified Prescriptions: Continued meclizine 25 mg tablet 25 mg PO TID PRN PRN (Reason: dizziness) Qty: 20 0RF No Action losartan 25 mg tablet 25 mg PO DAILY hydrochlorothiazide 12.5 mg tablet 12.5 mg PO DAILY glimepiride 4 mg tablet 6 mg PO QAM Patient Comments: TAKE 1 & 1/2 TABLETS BYCMOUTH EVERY MORNING BEFORE BREAKFAST Januvia 100 mg tablet 100 mg PO DAILY Patient Comments: TAKE 1 TABLET BY MOUTHNONCE DAILY nitroglycerin 0.4 mg tablet, sublingual 0.4 mg sublingual Q5-15M PRN (Reason: chest pain) Qty: 25 3RF Rx Instructions: do not exceed 3 doses per episode atenolol 25 MG tablet 25 mg PO DAILY zolpidem 10 MG tablet 10 mg PO QHS pantoprazole 40 MG tablet 40 mg PO QHS Patient Comments: TAKE 1 TABLET BY MOUTH ONCE DAILY rosuvastatin 40 mg tablet 40 mg PO DAILY metformin 500 mg tablet extended release 24 hr 500 mg PO DAILY Primary Care Provider: Jose A Bush Referrals: Kane Amaya MD [Med Staff - Active Staff] - Keep Adonis appointment Jose A Bush MD [Primary Care Provider] - 5-7 Days Disposition Disposition: Home, Self Care
--- NOTE | 2023-11-12 10:05 | EKG12_ITS ---
Test Reason : CP Blood Pressure : / mmHG Vent. Rate : 086 BPM Atrial Rate : 086 BPM P-R Int : 150 ms QRS Dur : 082 ms QT Int : 370 ms P-R-T Axes : 045 -05 031 degrees QTc Int : 442 ms Normal sinus rhythm Normal ECG Confirmed by Cj Fernandez ([id number]), film editor supervisor DANIEL BANSAL ([id number]) on 11/14/2023 5:41:45 AM Referred By: ES Confirmed By:Cj Fernandez
--- NOTE | 2023-11-12 10:05 | CT_ITS ---
STUDY: CT BRAIN WITHOUT CONTRAST REASON FOR EXAM: Male, 58 years old. 2 day history of dizziness. RADIATION DOSAGE (If Supplied By Facility): CTDIvol = ( 44.99 ) mGy, DLP = ( 815.79 ) mGycm TECHNIQUE: Transaxial CT imaging of the brain was performed without administration of intravenous contrast material. Individualized dose optimization techniques were used for this CT. COMPARISON: Comparison is made with prior study May 16, 2020. FINDINGS: Normal soft tissue structures. Normal calvarium. Normal size ventricles and extra-axial spaces for the patient''s age. Normal white matter tracts of the cerebral hemispheres. There are small punctate calcifications of the basal ganglia which are seen in the aging brain as a normal variant. Normal brainstem. Normal cerebellum. There is no intracranial hemorrhage. There are no findings of an acute ischemic infarction. Atherosclerotic plaque formation of the cavernous portions of the internal carotid arteries bilaterally. There is a 1 cm polyp or retention cyst along the inferior medial aspect of the left maxillary sinus. CT/Brain/Head without Contrast IMPRESSION: Normal unenhanced CT scan of the brain. No acute abnormality is seen. Electronically Signed: Ar Tenorio MD at 11:00 EDT ,
[2023-11-12 10:20] LABS: Absolute Lymphocyte Count 2.81 X10^3/uL (0.83-4.51); Absolute Neutrophil Count 4.7 X10^3/uL (2.0-7.7); Basophil# 0.08 X10^3/uL; Basophil% 0.9 % (0-1); Eosinophil# 0.28 X10^3/uL; Eosinophils% 3.3 % (0-5); Hemoglobin 15.9 g/dL (13.0-16.5); Lymphocyte # 2.81 X10^3/ul (0.83-4.51); Lymphocyte % 33.1 % (19-41); Mean Corp Hgb Conc 33.8 g/dL (32-36); Mean Corpuscular Hgb 29.5 pg (27.0-32.0); Mean Corpuscular Volume 87.2 fL (80-94); Mean Platelet Vol. 9.2 fl (6.2-12.0); Monocyte# 0.58 X10^3/uL; Monocyte% 6.8 % (0-10); NRBC Flagged by Analyzer 0 % (0-5); Neutrophil # 4.69 X10^3/uL (2.7-7.7); Neutrophil % 55.3 % (47-70); Platelet Count 333 K/mm3 (150-450); RBC Distribution Width CV 13.1 % (11.6-14.6); RBC Distribution Width SD 41.4 fl (35.1-43.9); Red Blood Count 5.39 M/mm3 (4.6-6.2); White Blood Count 8.5 K/mm3 (4.4-11.0)
[2023-11-12 10:34] LABS: Anion Gap 6 (5-15); BUN 14 mg/dL (7-18); Calcium,Total 9.2 mg/dL (8.5-10.1); Chloride 104 mmol/L (98-107); EST Glomerular Filtration Rate 55 mL/min (>60); Est Glom Filt Rate - Afr Amer 67 mL/min (>60); Glucose 224 mg/dL (74-106); Sodium Level 139 mmol/L (136-145); Troponin-I HS 3 pg/mL (3.0-78.0)
[2023-11-12] MEDS: 0.9% Normal Saline (1000mL) 1,000 ML 1000 ML IV (10:35)
[2023-11-12] MEDS: diazePAM 5 MG Tablet 2.5 MG PO (10:35)
[2023-11-12] MEDS: Meclizine HCl 25 MG Tablet PO (11:35)
[2023-11-12 11:39] VITALS: BP 137/82; PULSE 79; RESP 18; O2SAT 97
[2023-11-12 13:00] VITALS: BP 144/84; PULSE 78; RESP 16
[2023-11-12 13:06] VITALS: BP 144/84; PULSE 78; RESP 16; TEMP 36.5; O2SAT 98
== END 2023-11-12 13:11 | disposition home or self-care (01) ==
PROVIDERS: Emergency Provider Emergency Medicine; PCP Family Medicine; Visit Provider Emergency Medicine
DX: R42 Dizziness and giddiness (principal); E11.9 Type 2 diabetes mellitus without complications; H93.19 Tinnitus, unspecified ear; I10 Essential (primary) hypertension; R51.9 Headache, unspecified; I25.10 Atherosclerotic heart disease of native coronary artery without angina pectoris; Z79.84 Long term (current) use of oral hypoglycemic drugs; Z79.899 Other long term (current) drug therapy; R07.9 Chest pain, unspecified; H53.8 Other visual disturbances
CPT/HCPCS: 70450; 80048; 84484; 85025; 93005; 96360; 99284; J7030; A4216

== ENCOUNTER → 2023-12-24 | Outpatient (CLI) | payer OTHER, SELFPAY ==
--- NOTE | 2023-12-24 15:47 | MRI_ITS ---
STUDY: MRI BRAIN WITH AND WITHOUT CONTRAST (ATTENTION INTERNAL AUDITORY CANALS - I.A.C.''s) REASON FOR EXAM: Male, 58 years old. IACs, RT SIDED HEARING LOSS, DIZZY, PREVIOUS CT TECHNIQUE: Standardized multiplanar fat and water weighted pulse sequences were obtained. IV 20ML CLARISCAN was administered for the contrast portion of the examination. COMPARISON: CT 11/12/2023 FINDINGS: Normal bilateral temporal bones. Normal bilateral internal auditory canals. There is no demonstrated intracanalicular or cisternal vestibular schwannoma (acoustic neuroma). There is no enhancement of the bilateral VIIth or VIIIth cranial nerves. Normal bilateral cochlea, vestibules and semicircular canals. Normal size of the ventricles and extra-axial spaces for the patient''s age. Normal white matter tracts of the supratentorial brain. There is no evidence for recent intracranial ischemia or other cause of cytotoxic edema on diffusion weighted imaging (DWI). Normal bilateral basal ganglia. Normal thalami. Normal flow voids within the major intracranial circulation suggesting patency by spin echo criteria. Normal venous enhancement. There is no enhancing intra-axial or extra-axial abnormality. There is no extra-axial fluid accumulation. Normal sella turcica, pituitary gland, infundibular stalk, optic chiasm and hypothalamus. Normal tectal plate and pineal gland. Normal midbrain, wu and medulla. Normal cerebellum. Normal basal cisterns. No demonstrated orbital abnormality, within the constraints of a routine brain study. Normal visualized paranasal sinuses. Normal calvarium and skull base. 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 Normal visualized upper cervical spine. MRI/Brain W/WO Contrast IMPRESSION: Normal unenhanced and enhanced MRI of the bilateral internal auditory canals (I.A.C''s). Electronically Signed: Gerry Ferreira MD at 23:42 EDT ,
[2023-12-24 16:30] LABS: CREATININE FINGERSTICK < 1.0 mg/dL (0.70-1.30); EGFR FINGERSTICK > 60.0000 mL/min (>60)
== END | disposition home or self-care (01) ==
PROVIDERS: PCP Family Medicine; Referring Provider Otolaryngology Otolaryngology/Facial Plastic Surgery; Visit Provider Otolaryngology Otolaryngology/Facial Plastic Surgery
DX: R27.0 Ataxia, unspecified (principal)
CPT/HCPCS: 70553; A9575

== ENCOUNTER 2024-07-28 09:22 | Day surgery (SDC) | payer OTHER, SELFPAY ==
[2024-07-18 17:55] LABS: Absolute Lymphocyte Count 3.93 X10^3/uL (0.83-4.51); Absolute Neutrophil Count 4.9 X10^3/uL (2.0-7.7); Basophil# 0.07 X10^3/uL; Basophil% 0.7 % (0-1); Eosinophil# 0.53 X10^3/uL; Eosinophils% 5.3 % (0-5); Hematocrit 43.5 % (40-54); Hemoglobin 14.6 g/dL (13.0-16.5); Lymphocyte # 3.93 X10^3/ul (0.83-4.51); Lymphocyte % 39.1 % (19-41); Mean Corp Hgb Conc 33.6 g/dL (32-36); Mean Corpuscular Hgb 29.2 pg (27.0-32.0); Mean Platelet Vol. 9.3 fl (6.2-12.0); Monocyte# 0.61 X10^3/uL; Monocyte% 6.1 % (0-10); NRBC Flagged by Analyzer 0 % (0-5); Neutrophil # 4.89 X10^3/uL (2.7-7.7); Neutrophil % 48.5 % (47-70); Platelet Count 359 K/mm3 (150-450); RBC Distribution Width CV 13.2 % (11.6-14.6); RBC Distribution Width SD 42.3 fl (35.1-43.9); White Blood Count 10.1 K/mm3 (4.4-11.0)
[2024-07-18 18:03] LABS: Anion Gap 5 (5-15); BUN 17 mg/dL (7-18); BUN/Creat Ratio 13.7 RATIO (10-20); Calcium,Total 9.7 mg/dL (8.5-10.1); Chloride 104 mmol/L (98-107); Creatinine, Serum 1.24 mg/dL (0.70-1.30); EST Glomerular Filtration Rate 63 mL/min (>60); Est Glom Filt Rate - Afr Amer 76 mL/min (>60); Glucose 112 mg/dL (74-106); Potassium 3.8 mmol/L (3.5-5.1); Sodium Level 138 mmol/L (136-145)
[2024-07-18 18:46] LABS: Hemoglobin A1c 6.5 % (3.8-5.6)
[2024-07-28] VITALS (10 sets, daily range): BP systolic 118–168; BP diastolic 70–85; PULSE 81–97; RESP 14–17; TEMP 36.6–36.7; O2SAT 92–100; BMI 33.7
[2024-07-28 10:05] LABS: Bedside Glucose 123 mg/dL (74-106)
[2024-07-28] MEDS: 0.9% Normal Saline (1000mL) 1,000 ML 15 ML IV (10:05)
--- NOTE | 2024-07-28 10:16 | PRE.ANES_ITS ---
ASA Classification* ASA Classification ASA Classification: 2 Assessment & Plan Anesthesia* Anesthesia Assessment Anesthesia Assessment: Discussed sedation and/or anesthesia options, risks, benefits, and alternatives with patient/parents/legal guardian/POA. Questions invited. The patient/parents/legal guardian/POA seems to understand and agrees to proceed with anesthesia plan. Reviewed the physical assessment, medical history, allergy history and patient home medications list prior to surgery/procedure/anesthetic and documented any changes. Performed airway and anesthesia risk assessments. Anesthesia Type Anesthesia Type: General History Source History Obtained from:: Patient and Chart Anesthesia Focused Assessment* Temperature: 97.8 F Pulse Rate: 81 Blood Pressure: 132/76 Respiratory Rate: 17 Pulse Ox: 100 Oxygen Delivery Method: Room Air Airway Assessment Mouth opens: >3 cm Mallampati Score: III Teeth Condition: Caps/Crowns (Patient has several caps. They are all tight.) Neck Range of motion (ROM): Limited ROM (Slight decrease in extension secondary to neck fusion.) Focused Labs Anesthesia Preop lab: CBC WBC 10.1 K/mm3 (4.4-11.0) 07/18/24 16:17 RBC 5.00 M/mm3 (4.6-6.2) 07/18/24 16:17 Hgb 14.6 g/dL (13.0-16.5) 07/18/24 16:17 Hct 43.5 % (40-54) 07/18/24 16:17 Plt Count 359 K/mm3 (150-450) 07/18/24 16:17 CHEMISTRY Potassium 3.8 mmol/L (3.5-5.1) 07/18/24 16:17 Sodium 138 mmol/L (136-145) 07/18/24 16:17 BUN 17 mg/dL (7-18) 07/18/24 16:17 Creatinine 1.24 mg/dL (0.70-1.30) 07/18/24 16:17 Glucose 112 mg/dL (74-106) H 07/18/24 16:17 POC Glucose 123 mg/dL (74-106) H 07/28/24 09:46 COAG PT 12.3 SECONDS (11.7-14.9) 05/16/20 09:45 Pre-Assessment Diagnosis/Proposed Procedure Planned Operative Procedure(s): (L) LEFT KNEE ARTHROSCOPY WITH PARTIAL MEDIAL MENISECTOMY Anesthesia History Anesthesia History - finance associate: Anesthesia History - finance associate Hx Hospitalization No 07/21/24 13:19 Any Problems With Anesthesia No 07/21/24 13:19 Cholinesterase deficiency No 07/21/24 13:19 You/Your Family Experience No 07/21/24 13:19 fever (hyperthermia) with Relationship Recent Exposure to Contagious No 07/28/24 10:01 Disease Does patient have nerve No 07/21/24 13:19 stimulator Patient instructed to have device shut off --Does patient have Pacemaker No 07/28/24 10:01 or ICD? When Was Last Pacemaker Check QUESTION #4 FULL TEXT: You/Your Family Experience fever (hyperthermia) with Anesthesia Last Oral Intake Last Oral intake: Last Oral Intake NPO since 09:30 07/28/24 10:01 Meds taken in AM with sips of water? Meds patient instructed to take am of surgery Any additional information?: Yes NPO since: 00:00 PONV PONV - finance associate: PONV - finance associate Female No 07/21/24 13:19 HX of Motion Sickness Yes 07/21/24 13:19 HX of N/V After Surgery No 07/21/24 13:19 Non-Smoker Yes 07/21/24 13:19 Duration of Surgery greater Yes 07/21/24 13:19 than 60 minutes Number of Risk Factors 3 07/21/24 13:19 PONV Score Moderate Risk 07/21/24 13:19 Height & Weight Height & Weight: Anesthesia: Height & Weight Height 5 ft 7 in 07/28/24 10:01 Weight: 97.8 kg 07/28/24 10:01 Body Mass Index (BMI) 33.7 07/28/24 10:01 Respiratory Assessment Respiratory Assessment - finance associate: Respiratory Tract Infection Hx - finance associate Hx Respiratory Tract Infection No 07/21/24 13:19 STOP Sleep Apnea STOP Sleep Apnea - finance associate: STOP Sleep Apnea - finance associate Hx Hypertension Yes 07/21/24 13:19 Hx Sleep Apnea No 07/21/24 13:19 CPAP No 07/21/24 13:19 BIPAP No 07/21/24 13:19 Do you snore loudly (louder Yes 07/21/24 13:19 than talking or can be heard Do you often feel tired/ No 07/21/24 13:19 fatigued/ sleepy during daytime? Has anyone observed you stop No 07/21/24 13:19 breathing during sleep? STOP Results Positive 07/21/24 13:19 QUESTION #5 FULL TEXT : Do you snore loudly (louder than talking or can be heard through closed doors)? 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 Specify any problems Hx of Preganancy in last 3 N/A 07/21/24 13:19 Months Nurse Filling Out Transfusion VCHRISTIN 07/21/24 13:19 & Questions: Date: 07/21/24 07/21/24 13:19 Time: 13:20 07/21/24 13:19 Patient unable to answer at this time (ie. confused, unrespo /Reproduction History /Reproductive History - finance associate: /Reproductive Hx- finance associate Hx Now Gestational Age (in weeks): EDC: Hx Hx Para Hx Section SAB Active Medications Active Medications: Current Medications Generic Name Dose Route Start Last Admin Trade Name Freq PRN Reason Stop Dose Admin Sodium Chloride 1,000 mls @ 15 mls/hr 07/28/24 09:30 07/28/24 10:05 IV 08/02/24 22:49 15 mls/hr .Q48H SUSY Administration Protocol PFSH Medical History Wears glasses Alcohol use History of steroid therapy Diabetes Arthritis Injury of head and neck Dietary restriction Gastric reflux Non-smoker History of echocardiogram History of stress test Cardiology follow-up encounter Type 2 diabetes mellitus without complication Atherosclerosis of coronary artery of [place] heart without angina pectoris Essential hypertension Home Medications ?Medication ?Instructions ?Recorded ?Last Taken ?Type atenolol 25 mg tablet 25 mg PO DAILY bp/heart 03/17/18 07/27/24 History zolpidem 10 mg tablet 10 mg PO QHS sleep 03/17/18 07/27/24 History losartan 25 mg tablet 25 mg PO DAILY 01/27/20 07/27/24 History hydrochlorothiazide 12.5 mg tablet 12.5 mg PO DAILY 09/30/20 07/27/24 History glimepiride 4 mg tablet 6 mg PO QAM 07/28/22 07/27/24 History nitroglycerin 0.4 mg sublingual 0.4 mg sublingual Q5-15M PRN chest 07/28/22 Unknown Rx tablet pain #25 tabs meclizine 25 mg tablet 25 mg PO TID PRN PRN dizziness #20 11/12/23 Unknown Rx tabs metformin 500 mg tablet,extended 1,000 mg PO BID 11/12/23 07/27/24 History release 24 hr rosuvastatin 40 mg tablet 40 mg PO DAILY 11/12/23 Unknown History diazepam 2 mg tablet 2 mg PO DAILY 07/21/24 07/27/24 History Allergy/AdvReac Type Severity Reaction Status Date / Time Iodinated Contrast Media Allergy Hives Verified 07/28/24 09:49 (CONTRASTS) levofloxacin (From Levaquin) Allergy Hives Verified 07/28/24 09:49 lisinopril AdvReac Intermediate cough Verified 07/28/24 09:49 Family History Father , Age 42 Myocardial infarction Brother Myocardial infarction, Onset Age: 55 Brother Myocardial infarction, Onset Age: 62 Sister Heart disease Mother Heart disease CHF Cancer cancer Surgical History History of cardiac catheterization Hx of cervical spine surgery History of shoulder surgery History of coronary artery stent placement (09/15/02) History of umbilical hernia repair History of carpal tunnel release of both wrists History of cholecystectomy History of shoulder replacement History of fusion of cervical spine History of left heart catheterization (07/11/19) Social History Smoking Status: Never smoker alcohol intake: current alcohol intake frequency: a few times a week substance use type: does not use caffeine: Yes Type: coffee Number of servings: 3 Review of Systems (Anesthesia) ROS Narrative System reviewed and no additional complaints, except as documented.
[2024-07-28] MEDS: Epinephrine (1 mg/ml) 1 MG/ML VIAL (11:20)
[2024-07-28] MEDS: Cefazolin 2 GM in Syringe IV (11:20)
--- NOTE | 2024-07-28 11:59 | PCM.OPRPT ---
Operative Report (Standard) Operative Information Date of Procedure: 07/28/24 Pre-Operative Diagnosis: Left knee medial meniscus tear and chondromalacia Post-Operative Diagnosis: Left knee medial meniscus tear and chondromalacia Surgery/Procedure Performed: Left knee arthroscopic partial medial meniscectomy and chondroplasty medial compartment heel cementer machine: No Type of Anesthesia: General RN Documented Start/Stop Times: Operation Date: 07/28/24 11:00 Case Time Into Pre-Op 07/28/24 09:27 Out of Pre-Op 07/28/24 11:16 Anesthesia Start 07/28/24 11:20 Into Room 07/28/24 11:20 Procedure Start 07/28/24 11:38 Procedure End 07/28/24 11:56 Procedure Start Time: 11:38 Procedure Stop Time: 11:56 Select all DRAINS/GRAFTS/IMPLANTS that apply: None Special Medications: Ancef Estimated Blood Loss: 5 mL Fluids Replaced: 700 mL crystalloid Specimen collected: No Description of surgery: On the date of the procedure, the patient's L lower extremity was marked in the preoperative area. Patient was brought back to the operating room where they were transferred to the bed. Anesthesia assumed control of the C-spine airway and administered anesthetic. All bony prominences were identified and well-padded and the L leg was placed in the arthroscopic leg alexis. The contralateral leg was then draped over the bed and well-padded. There was padding underneath both sciatic nerves. The foot of the bed was then dropped and the L leg was prepped in a sterile fashion. The surgeon then scrubbed. Upon reentering the room, the operative leg was draped in a standard orthopedic fashion. A timeout was called, everyone agreed upon the side, the site, the procedure to be performed, patient's identity and antibiotics given. Incisions were marked out for the medial and lateral infrapatellar portals. Esmarch bandage was then used to exsanguinate the leg and tourniquet was placed at 250 mmHg. At this time, the lateral portal incision was made in a vertical fashion. The trocar was placed into the joint. The camera was then placed and the patellofemoral joint was visualized. The patella did appear to have grade 2-3 chondral changes. The trochlea appeared to have minimal chondral changes. We then directed our attention to the medial gutter where there was no foreign body. Then directed our attention to the medial joint compartment. There were grade 3 chondral changes on the medial distal femur with a chondral flap noted on the lateral portion along the notch, grade 1-2 chondral changes on the medial tibial plateau. The medial meniscus had posterior root tear otherwise was stable. The medial portal was then placed under direct visualization using a spinal needle an 11 blade scalpel. Once this was done a probe was placed in the joint and the meniscus was probed finding posterior root tear. The biters and fabiola were then used sequentially to debriding get rid of any free edges that could be a source of pain and catching in the meniscus tear. Once this was done we again probed the meniscus was found to be stable. Additionally, there was an unstable chondral flap. Shaver was used to debride this area and once it was debrided down to firm edges that were stable it was noted to have grade 2A once we felt medial meniscus tear was adequately debrided, we again visualized the joint and noted the meniscus tear was adequately debrided. Attention was then turned towards the notch where the anterior cruciate ligament was intact. PCL was visualized and appeared intact. Attention was then directed towards the lateral compartment where the lateral distal femur had minimal chondral changes, the lateral proximal tibia had minimal chondral changes. The lateral meniscus had intact. We then directed our attention to the lateral gutter, which was visualized and no free bodies were noted. At this time the wound was copiously irrigated out with normal saline with epinephrine. The wound was closed with 4-0 nylon. Xeroform was placed over the incision. Sterile dressing was placed. Compressive dressing was placed. Tourniquet was let down. For that there was then placed up. Patient was awakened by anesthesia patient was transferred to the PACU for recovery in stable condition. Anesthesia then administered an adductor canal block for postoperative pain control Postoperative plan: Patient will be made weight-bear as tolerated. Return to activities as tolerated. He will come to the office in 2 weeks for postoperative wound check and suture removal. If he is doing well that time he can follow-up as needed. Surgical Findings: Posterior root tear. Patient had a chondral flap in the lateral portion of the medial femoral condyle along the femoral notch which when debrided was grade III chondromalacia Complications Complications: No Admit VTE Documentation VTE Present on Admission: No VTE Mechan Device Prophylaxis: SCD's and Thigh High EILZABETH Hose VTE Pharm Prophylaxis ordered?: Yes
[2024-07-28] MEDS: HYDROcodone Bitartrate/Apap 5/325 Tablet PO (13:09)
[2024-07-28] MEDS: Ketorolac 30 MG/ML Syringe IV (13:09)
--- NOTE | 2024-07-28 13:54 | PCM.POST.ANE ---
Anesthesia: Postop Eval I Current Vital Signs Temperature: 97.9 F Pulse Rate: 97 Blood Pressure: 168/85 Respiratory Rate: 16 Pulse Ox: 96 Oxygen Delivery Method: Room Air Assessment Airway patent: Yes Spontaneous unlabored respirations: Yes Mental status: Awake and Calm nausea: No Vomiting: No Anesthesia Complication: No Fluid Hydration Crystalloid volume administer (ml): 700 Total IV fluid infused: 700 Progress Note Anesthesia document: Postop Eval 1 completed: Yes
--- NOTE | 2024-07-28 15:07 | POSTOPAN2_ITS ---
Anesthesia Postop Eval I Sum Postop Eval Completion status Anesthesia document: Postop Eval 1 completed: Yes Anesthesia Postop Eval I Summary Anesthesia Postop Eval I Summary: Anesthesia Postop Eval I: Assessment Summary Airway patent Yes 07/28/24 13:54 REHABILITATION THERAPIST.MDOT Spontaneous unlabored Yes 07/28/24 13:54 REHABILITATION THERAPIST.MDOT respirations Mental status Awake,Calm 07/28/24 13:54 REHABILITATION THERAPIST.MDOT nausea No 07/28/24 13:54 REHABILITATION THERAPIST.MDOT Vomiting No 07/28/24 13:54 REHABILITATION THERAPIST.MDOT Anesthesia Postop Eval I: Fluid Summary Crystalloid volume administer 700 07/28/24 13:54 REHABILITATION THERAPIST.MDOT (ml) Colloids volume administered ( ml) Blood Product volume administered (ml) Total IV fluid infused 700 07/28/24 13:54 REHABILITATION THERAPIST.MDOT Anesthesia Postop Eval I: Summary Notes Anesthesia Complication No 07/28/24 13:54 REHABILITATION THERAPIST.MDOT Anesthesia Complication Comment: Post-operative progress note Anesthesia: Postop Eval II Evaluation Mental status: Awake and Calm Pain Level: 1 nausea: No Vomiting: No Complications Anesthesia Complication: No
--- NOTE | 2024-07-28 15:07 | PCM.POSTANE2 ---
Anesthesia Postop Eval I Sum Postop Eval Completion status Anesthesia document: Postop Eval 1 completed: Yes Anesthesia Postop Eval I Summary Anesthesia Postop Eval I Summary: Anesthesia Postop Eval I: Assessment Summary Airway patent Yes 07/28/24 13:54 VENDOR [email or web address].[email or web address] Spontaneous unlabored Yes 07/28/24 13:54 VENDOR REPRESENTATIVES.MDOT respirations Mental status Awake,Calm 07/28/24 13:54 VENDOR REPRESENTATIVES.MDOT nausea No 07/28/24 13:54 VENDOR REPRESENTATIVES.MDOT Vomiting No 07/28/24 13:54 VENDOR REPRESENTATIVES.MDOT Anesthesia Postop Eval I: Fluid Summary Crystalloid volume administer 700 07/28/24 13:54 VENDOR REPRESENTATIVES.MDOT (ml) Colloids volume administered ( ml) Blood Product volume administered (ml) Total IV fluid infused 700 07/28/24 13:54 VENDOR REPRESENTATIVES.MDOT Anesthesia Postop Eval I: Summary Notes Anesthesia Complication No 07/28/24 13:54 VENDOR REPRESENTATIVES.MDOT Anesthesia Complication Comment: Post-operative progress note Anesthesia: Postop Eval II Evaluation Mental status: Awake and Calm Pain Level: 1 nausea: No Vomiting: No Complications Anesthesia Complication: No
== END 2024-07-28 13:37 | disposition home or self-care (01) ==
LOC: SDC 09:22 → AC 09:24
PROVIDERS: PCP Family Medicine; Referring Provider Specialist; Visit Provider Specialist
PROC: (CPT 29870; principal; 2024-07-28 10:40)
DX: S83.242A Other tear of medial meniscus, current injury, left knee, initial encounter (principal); E11.9 Type 2 diabetes mellitus without complications; M94.262 Chondromalacia, left knee; E78.00 Pure hypercholesterolemia, unspecified; G47.30 Sleep apnea, unspecified; I10 Essential (primary) hypertension; I25.10 Atherosclerotic heart disease of native coronary artery without angina pectoris; J45.909 Unspecified asthma, uncomplicated; H91.90 Unspecified hearing loss, unspecified ear
CPT/HCPCS: 29881; 01400; 36415; 80048; 82962; 83036; 85025; A4216; J2405

== ENCOUNTER → 2025-05-19 | Outpatient (CLI) | payer BC, SELFPAY | END | disposition home or self-care (01) | PROVIDERS: PCP Family Medicine; Referring Provider Nurse Practitioner Family; Visit Provider Nurse Practitioner Family | DX: R07.9 Chest pain, unspecified (principal); E11.9 Type 2 diabetes mellitus without complications; Z95.5 Presence of coronary angioplasty implant and graft | CPT/HCPCS: 78452; 93017; A9500; A4216 ==

== ENCOUNTER 2025-05-20 06:45 | Inpatient (IN) | payer BC, SELFPAY ==
[2025-05-20] VITALS (16 sets, daily range): BP systolic 116–158; BP diastolic 73–91; PULSE 84–101; RESP 15–18; TEMP 36.1–36.8; O2SAT 93–100; BMI 32.4; BMI 32.7
--- NOTE | 2025-05-20 07:05 | EKG12_ITS ---
Test Reason : CP Blood Pressure : */* mmHG Vent. Rate : 99 BPM Atrial Rate : 99 BPM P-R Int : 132 ms QRS Dur : 84 ms QT Int : 356 ms P-R-T Axes : 40 0 25 degrees QTcB Int : 456 ms Normal sinus rhythm Normal ECG Confirmed by CARRIE LOPEZ, ASHIA ([id number]), production editor DANIEL BANSAL ([id number]) on 05/21/2025 9:59:33 AM Referred By: Confirmed By: ASHIA BUTLER MD
[2025-05-20 07:13] LABS: Hematocrit 41.3 % (40-54); Hemoglobin 13.9 g/dL (13.0-16.5); Immature Granulocytes Count 0.020 X10^3/uL (0.0-0.0); Mean Corp Hgb Conc 33.7 g/dL (32-36); Mean Corpuscular Volume 86.8 fL (80-94); Mean Platelet Vol. 8.9 fl (6.2-12.0); NRBC Flagged by Analyzer 0 % (0-5); Platelet Count 378 K/mm3 (150-450); RBC Distribution Width CV 12.8 % (11.6-14.6); RBC Distribution Width SD 39.8 fl (35.1-43.9); Red Blood Count 4.76 M/mm3 (4.6-6.2); White Blood Count 8.1 K/mm3 (4.4-11.0)
[2025-05-20] MEDS: Nitroglycerin SL (ED/IMG/CATH) 0.4 MG TABLET SL (07:15)
--- NOTE | 2025-05-20 07:20 | RAD_ITS ---
PROCEDURE: CHEST PA AND LATERAL 05/20/2025 REASON FOR EXAM: CHEST PAIN TECHNIQUE: Procedure Code: RADCXR Modality: DX Procedure: CHEST PA AND LATERAL COMPARISON: None FINDINGS: Hardware: Lower cervical spine fusion. Left shoulder arthroplasty. EKG leads. Surgical clips right upper quadrant presumably from cholecystectomy. Heart: The heart size is normal. Mediastinum: The mediastinal contour is unremarkable. Lungs: Lungs are hypoventilated. Subsegmental atelectasis left lung base. Bones: The bones are unremarkable. RAD/Chest PA and Lateral IMPRESSION: Hypoventilation. Subsegmental atelectasis left lung base. Reading Location: [id number]
[2025-05-20 07:25] LABS: Prothrombin Time (Protime)PT. 13.4 SECONDS (11.7-14.9)
[2025-05-20 07:26] LABS: Partial Thromboplast Time 30.7 Seconds (24.1-36.2)
--- NOTE | 2025-05-20 07:31 | EDS_ITS ---
HPI History of Present Illness Chief Complaint: Chest Pain Narrative Narrative: Chief complaint and HPI: 60-year-old male with past medical history of DM2, HLD, CAD, HTN presents for evaluation of chest pain. Patient states for the past several months he has been having intermittent chest pain. Progressively worsening. States he had a stress test performed yesterday in which he developed chest pain during the event. States he received a nitro with improvement. Patient states since the stress test he has been having episodic chest pain, improved with home nitro. Describes it as pressure and tightness. Denies any nausea, vomiting, shortness of breath. Review of systems: See HPI Medications: As listed on the chart Allergies: As listed on the chart PFSH: Per chart Vital signs: As listed on the chart. Reviewed. Physical exam: Gen: A&O x3, NAD Head: Normocephalic, atraumatic Eyes: No sclera icterus, conjunctiva clear ENT: Moist mucous membranes Neck: Trachea midline CV: RRR, no murmurs, no peripheral edema Resp: Lungs CTA BL, no w/r/c GI: Abd soft, non-distended, non-tender, no r/r/g Musc: Full ROM, no deformity Skin: Warm, dry Neuro: Alert, oriented, grossly intact, sensation intact Psych: Cooperative, appropriate mood and affect [facility] Medical History (Reviewed 11/10/24 @ 15:58 by Gagandeep Nunn PHYSICAL TESTING SUPERVISOR, PHYSICAL TESTING SUPERVISOR-C) Wears glasses Alcohol use History of steroid therapy Diabetes Arthritis Injury of head and neck Dietary restriction Gastric reflux Non-smoker History of echocardiogram History of stress test Cardiology follow-up encounter Type 2 diabetes mellitus without complication Atherosclerosis of coronary artery of [place] heart without angina pectoris Essential hypertension Home Medications ?Medication ?Instructions ?Recorded ?Last Taken ?Type atenolol 25 mg tablet 25 mg PO DAILY bp/heart 03/0607/27/24 History zolpidem 10 mg tablet 10 mg PO QHS sleep 03/17/18 07/27/24 History losartan 25 mg tablet 25 mg PO DAILY 01/27/2007/07 History glimepiride 4 mg tablet 6 mg PO QAM 07/28/22 4 History meclizine 25 mg tablet 25 mg PO TID PRN PRN dizzine ss #20 11/12/23 Unknown Rx tabs metformin 500 mg tablet,extended 1,000 mg PO BID 11/1107/27/24 History release 24 hr rosuvastatin 40 mg tablet 40 mg PO DAILY 11/12/23 Unkn own History diazepam 2 mg tablet 2 mg PO DAILY 07/21/2407/27 History nitroglycerin 0.4 mg sublingual 0.4 mg sublingual Q5-1 5M PRN chest 05/11/25 Unknown Rx tablet pain #25 tabs hydrochlorothiazide 12.5 mg tablet 25 mg PO DAILY 04/30 Unknown History Allergy/AdvReac Type Severity Reaction Status Date / Time Iodinated Contrast Media Allergy Hives Verified 05/20/25 06:45 (CONTRASTS) levofloxacin (From Levaquin) Allergy Hives Verified 05/20/25 06:45 lisinopril AdvReac Intermediate cough Verified 05/20/25 06:45 Family History (Reviewed 11/10/24 @ 15:58 by Gagandeep Nunn PHYSICAL TESTING SUPERVISOR, PHYSICAL TESTING SUPERVISOR-C) Father , Age 42 Myocardial infarction Brother Myocardial infarction, Onset Age: 55 Brother Myocardial infarction, Onset Age: 62 Sister Heart disease Mother Heart disease CHF Cancer cancer Surgical History (Reviewed 11/10/24 @ 15:58 by Gagandeep Nunn PHYSICAL TESTING SUPERVISOR, PHYSICAL TESTING SUPERVISOR-C) History of cardiac catheterization Hx of cervical spine surgery History of shoulder surgery History of coronary artery stent placement (09/15/02) History of umbilical hernia repair History of carpal tunnel release of both wrists History of cholecystectomy History of shoulder replacement History of fusion of cervical spine History of left heart catheterization (07/11/19) Social History (Reviewed 11/10/24 @ 15:58 by Gagandeep Nunn PHYSICAL TESTING SUPERVISOR, PHYSICAL TESTING SUPERVISOR-C) Smoking Status: Never smoker alcohol intake: current alcohol intake frequency: a few times a week substance use type: does not use caffeine: Yes Type: coffee Number of servings: 3 EXAM Physical Exam Const Vital Signs: 05/20/25 06:47 05/20/25 06:49 05/20/25 07:15 Temperature 97 F L Temperature Source Oral Pulse Rate 97 97 Respiratory Rate 18 Respiratory Effort Normal Blood Pressure 158/91 H 136/87 H Blood Pressure Mean 113 Pulse Ox 99 05/20/25 07:45 05/20/25 08:00 05/20/25 09:00 Temperature Temperature Source Pulse Rate 89 88 88 Respiratory Rate 16 16 16 Respiratory Effort Blood Pressure 125/82 H 117/78 134/89 H Blood Pressure Mean 96 91 104 Pulse Ox 99 99 99 05/20/25 10:00 Temperature Temperature Source Pulse Rate 84 Respiratory Rate 16 Respiratory Effort Blood Pressure 130/80 H Blood Pressure Mean 96 Pulse Ox 99 MDM MDM MDM Narrative Medical decision making narrative: 60-year-old male with past medical history of DM2, HLD, CAD, HTN presents for evaluation of chest pain. Patient states for the past several months he has been having intermittent chest pain. Progressively worsening. States he had a stress test performed yesterday in which he developed chest pain during the event. States he received a nitro with improvement. Patient states since the stress test he has been having episodic chest pain, improved with home nitro. Describes it as pressure and tightness. On chart review, patient had an exercise myocardial perfusion stress test performed yesterday. His EF is 54%. It was an abnormal exercise myocardial perfusion stress test at a moderate workload with evidence of inferior ischemia. He also had short nonsustained wide-complex tachycardia spells. Differential diagnosis includes but is not limited to ACS, electrolyte abnormality, dehydration. Aspirin and nitro ordered. Cardiac workup ordered. CBC unremarkable without leukocytosis or anemia. Coagulation panel unremarkable. BMP unremarkable except for hyperglycemia. Troponin 43 and 41. On reevaluation, patient still endorsing some mild chest pain. Cardiology consulted. I spoke with Dr. Smith. Plan is to make patient n.p.o. for cardiac catheterization today. Patient was updated of all the results and the plan. He confirmed understanding. Patient mid to the hospitalist service. EKG: Interpreted by me/EM physician: EKG shows normal sinus rhythm without any acute ischemic changes. Heart rate 99 Diagnostic: Interpreted by me/EM physician: Chest x-ray without pneumonia, effusion, cardiomegaly, pneumothorax. Atelectasis in the left lung base per radiology. Impression: 1. Chest pain 2. Abnormal stress test outpatient Lab Data Labs: Laboratory Results - last 24 hr 05/20/25 05/20/25 06:52 09:06 WBC 8.1 RBC 4.76 Hgb 13.9 Hct 41.3 MCV 86.8 MCH 29.2 MCHC 33.7 RDW Std Deviation 39.8 RDW Coeff of Noam 12.8 Plt Count 378 MPV 8.9 Immature Gran % (Auto) 0.200 Neut % (Auto) 46.8 L Lymph % (Auto) 39.3 [place] % (Auto) 7.8 Eos % (Auto) 5.2 H Baso % (Auto) 0.7 Absolute Neuts (auto) 3.8 Absolute Lymphs (auto) 3.17 Nucleated RBC % 0 PT 13.4 INR 1.0 APTT 30.7 Sodium 139 Potassium 3.6 Chloride 103 Carbon Dioxide 24.5 Anion Gap 12 BUN 11 Creatinine 1.18 Estim Creat Clear Calc 71.84 Est GFR (MDRD) Non-Af 70 BUN/Creatinine Ratio 9.1 L Glucose 166 H Calcium 9.1 Troponin T High Sens 43 H Troponin T Hi Sens 2 Hr 41 H Radiography Diagnostic Testing: Clinical Impression(s) from Imaging Studies Chest X-Ray 05/20/25 07:20 IMPRESSION: Hypoventilation. Subsegmental atelectasis left lung base. Reading Location: [facility] Discharge Plan Triage Chief Complaint: Chest Pain ED Provider: Nawaf Piña Dx/Rx/DC Orders Prescriptions: No Action losartan 25 mg tablet 25 mg PO DAILY hydrochlorothiazide 12.5 mg tablet 25 mg PO DAILY glimepiride 4 mg tablet 6 mg PO QAM Patient Comments: TAKE 1 1/2 TAB QAM FOR 6 MG IN AM THEN 1/2 TABLET IN PM 2 MG atenolol 25 MG tablet 25 mg PO DAILY zolpidem 10 MG tablet 10 mg PO QHS diazepam 2 mg tablet 2 mg PO DAILY rosuvastatin 40 mg tablet 40 mg PO DAILY metformin 500 mg tablet extended release 24 hr 1,000 mg PO BID meclizine 25 mg tablet 25 mg PO TID PRN PRN (Reason: dizziness) Qty: 20 0RF nitroglycerin 0.4 mg tablet, sublingual 0.4 mg sublingual Q5-15M PRN (Reason: chest pain) Qty: 25 3RF Rx Instructions: do not exceed 3 doses per episode Primary Care Provider: Jose A Bush Referrals: Jose A Bush MD [Primary Care Provider, Family Practice] Print Language: Serbian
[2025-05-20 07:33] LABS: Anion Gap 12 (5-15); BUN 11 mg/dL (4-19); BUN/Creat Ratio 9.1 RATIO (10-20); Calcium,Total 9.1 mg/dL (7.6-11.0); Carbon Dioxide 24.5 mmol/L (21.0-32.0); Chloride 103 mmol/L (98-108); Estimated Creatinine Clearance 71.84 ml/min (50-250); Glucose 166 mg/dL (70-99); Potassium 3.6 mmol/L (3.3-5.1); Troponin T High Sensitivity 43 ng/L (<=22)
[2025-05-20 09:52] LABS: Troponin T High Sens 2 HR 41 ng/L (<=22)
[2025-05-20 11:43] LABS: Troponin T High Sens 4 HR 42 ng/L (<=22)
--- NOTE | 2025-05-20 11:53 | PCM.CONS.C ---
Assessment & Plan Assessment/Plan (1) Chest pain: PLAN: Patient presents with chest discomfort which appears to be accelerating angina. My recommendation at this time will for him to undergo a left heart catheterization. Risk benefits alternatives of an explained to him he understands and agrees to proceed. (2) Essential hypertension: PLAN: He does have a history of hypertension which is not very well-controlled. Would more aggressively control his blood pressure. (3) HLD (hyperlipidemia): QUALIFIERS: Hyperlipidemia type: unspecified Qualified Code(s): E78.5 - Hyperlipidemia, unspecified PLAN: He will continue with aggressive risk factor modification HPI Consult Data Date of Consult: 05/20/25 HPI Narrative HPI Narrative: ELEAZAR COVINGTON, is a 60 M who presents to the emergency room complaining of chest discomfort described as a heaviness which started in the night associated with diaphoresis and pressure-like sensation. He did take 2 sublingual nitroglycerin with no relief and so he decided he could not go to work and came to the emergency room. The emergency room he was evaluated his troponin was noted to be mildly elevated. Cardiology was called for evaluation and management. He does have a history of coronary artery disease status post LAD stenting in 2002, hypertension, hyperlipidemia, diabetes mellitus. He had actually noted daily chest discomfort increased with exertion going away with rest radiating to both arms. This has been going on for approximately 2 months or so he denied any orthopnea paroxysmal nocturnal dyspnea lightheadedness dizziness weakness. He denied any presyncope or syncope. He was sent for and underwent a stress test which demonstrated evidence of inferior ischemia at a moderate workload. [facility] Medical History Wears glasses Alcohol use History of steroid therapy Diabetes Arthritis Injury of head and neck Dietary restriction Gastric reflux Non-smoker History of echocardiogram History of stress test Cardiology follow-up encounter Type 2 diabetes mellitus without complication Atherosclerosis of coronary artery of [place] heart without angina pectoris Essential hypertension Home Medications ?Medication ?Instructions ?Recorded ?Last Taken ?Type atenolol 25 mg tablet 25 mg PO DAILY bp/heart 03/17/18 07/27/24 History zolpidem 10 mg tablet 10 mg PO QHS sleep 03/17/18 07/27/24 History losartan 25 mg tablet 25 mg PO DAILY 01/27/20 07/27/24 History glimepiride 4 mg tablet 6 mg PO QAM 07/28/22 07/27/24 History meclizine 25 mg tablet 25 mg PO TID PRN PRN dizziness #20 11/12/23 Unknown Rx tabs metformin 500 mg tablet,extended 1,000 mg PO BID 11/12/23 07/27/24 History release 24 hr rosuvastatin 40 mg tablet 40 mg PO DAILY 11/12/23 Unknown History diazepam 2 mg tablet 2 mg PO DAILY 07/21/24 07/27/24 History nitroglycerin 0.4 mg sublingual 0.4 mg sublingual Q5-15M PRN chest 05/11/25 Unknown Rx tablet pain #25 tabs hydrochlorothiazide 12.5 mg tablet 25 mg PO DAILY 05/14/25 Unknown History Allergy/AdvReac Type Severity Reaction Status Date / Time Iodinated Contrast Media Allergy Hives Verified 05/20/25 06:45 (CONTRASTS) levofloxacin (From Levaquin) Allergy Hives Verified 05/20/25 06:45 lisinopril AdvReac Intermediate cough Verified 05/20/25 06:45 Family History Father , Age 42 Myocardial infarction Brother Myocardial infarction, Onset Age: 55 Brother Myocardial infarction, Onset Age: 62 Sister Heart disease Mother Heart disease CHF Cancer cancer Surgical History History of cardiac catheterization Hx of cervical spine surgery History of shoulder surgery History of coronary artery stent placement (09/15/02) History of umbilical hernia repair History of carpal tunnel release of both wrists History of cholecystectomy History of shoulder replacement History of fusion of cervical spine History of left heart catheterization (07/11/19) Social History Smoking Status: Never smoker alcohol intake: current alcohol intake frequency: a few times a week substance use type: does not use caffeine: Yes Type: coffee Number of servings: 3 ROS Constitutional Constitutional: Denies fever(s) or weight loss Eyes Eyes: Reports systems reviewed and no addt'l complaints, except as documented ENT HEENT: Reports systems reviewed and no addt'l complaints, except as documented Cardiovascular Cardiovascular: Reports chest pain at rest, chest pain with activity and dyspnea on exertion; Denies dyspnea at rest, edema, palpitations or paroxysmal nocturnal dyspnea Respiratory/Chest Respiratory/Chest: Denies dyspnea on exertion, productive cough, shortness of breath at rest or shortness of breath with exertion Gastrointestinal Gastrointestinal: Denies change in bowel habits, nausea, vomiting or weight changes Genitourinary Genitourinary: Denies difficulty urinating Musculoskeletal Musculoskeletal: Denies joint stiffness or muscle weakness Integumentary Integumentary: Denies lesions Neurologic Neurologic: Denies dizziness or syncope Psychiatric Psychiatric: Denies anxiety Endocrine Endocrinology: Denies excessive sweating or fatigue Hematologic/Lymphatic Hematologic/Lymphatic: Denies anemia Allergic/Immunologic Allergic/Immunologic: Denies seasonal rhinorrhea Physical Exam Const alert and oriented x3 HEENT normocephalic Eyes PERRL Neck Carotids: normal carotid upstroke Cardio regular rate and regular rhythm Palpation: normal PMI Rate: regular rate Rhythm: regular rhythm Extremity normal to inspection Objective Data Vital Signs: Vital Signs Temp Pulse Resp BP Pulse Ox 98 F 90 18 142/88 H 99 05/20/25 10:47 05/20/25 10:47 05/20/25 10:47 05/20/25 10:47 05/20/25 10:47 Weight: 207 lb 3.752 oz Body Mass Index (BMI) 32.4 Lab / Micro Data 05/20/25 06:52 05/20/25 06:52 Labs: Laboratory Results - last 24 hr 05/20/25 06:52: WBC 8.1, RBC 4.76, Hgb 13.9, Hct 41.3, MCV 86.8, MCH 29.2, MCHC 33.7, RDW Std Deviation 39.8, RDW Coeff of Noam 12.8, Plt Count 378, MPV 8.9, Immature Gran % (Auto) 0.200, Neut % (Auto) 46.8 L, Lymph % (Auto) 39.3, [place] % (Auto) 7.8, Eos % (Auto) 5.2 H, Baso % (Auto) 0.7, Absolute Neuts (auto) 3.8, Absolute Lymphs (auto) 3.17, Nucleated RBC % 0, PT 13.4, INR 1.0, APTT 30.7, Sodium 139, Potassium 3.6, Chloride 103, Carbon Dioxide 24.5, Anion Gap 12, BUN 11, Creatinine 1.18, Estim Creat Clear Calc 71.84, Est GFR (MDRD) Non-Af 70, BUN/Creatinine Ratio 9.1 L, Glucose 166 H, Calcium 9.1, Troponin T High Sens 43 H 05/20/25 09:06: Troponin T Hi Sens 2 Hr 41 H 05/20/25 11:08: Troponin T Hi Sens 4Hr 42 H Cardiology Labs/Tests 05/20/25 06:52: WBC 8.1, RBC 4.76, Hgb 13.9, Hct 41.3, MCV 86.8, MCH 29.2, MCHC 33.7, Plt Count 378, MPV 8.9, Immature Gran % (Auto) 0.200, Neut % (Auto) 46.8 L, Lymph % (Auto) 39.3, [place] % (Auto) 7.8, Eos % (Auto) 5.2 H, Baso % (Auto) 0.7, Absolute Neuts (auto) 3.8, Nucleated RBC % 0, PT 13.4, INR 1.0, APTT 30.7, Sodium 139, Potassium 3.6, Chloride 103, Carbon Dioxide 24.5, Anion Gap 12, BUN 11, Creatinine 1.18, Est GFR (MDRD) Non-Af 70, BUN/Creatinine Ratio 9.1 L, Glucose 166 H, Calcium 9.1 Rhythm: EKG: ECHO: Stress Test: Cardiac Cath: PCI: CT Surgery: Holter monitor: EPS: PPM: CXR: Chest CT Scan: Radiography Diagnostic Testing: Radiology Impression Chest X-Ray 05/20/25 07:20 IMPRESSION: Hypoventilation. Subsegmental atelectasis left lung base. Reading Location: [facility] Risk Score for UA/STEMI Assesmment (YES = 1) Risk Stratification Applicable: Yes Age > or = 65: No > or = 3 CAD risk factors (HTN, Hypercholesterolemia, Diabetes, family hx, current smoker): Yes Known CAD (Stenosis > or = 50%): Yes ASA used in past 7 days: Yes Severe angina (> or = 2 episodes in 24 hrs): Yes EKG ST change > or = 0.5mm: No Positive cardiac markers: Yes Score [facility] Risk Score of mortality/ recurrent ischemic event over the next 14 days: 5 = 26.6% - HIGH RISK
--- NOTE | 2025-05-20 13:19 | CL.D_ITS ---
Patient Name: ELEAZAR COVINGTON Study Date: 05/20/2025 Performing: Fly Smith MD Ht: 67 inches 170.18 cm : 1965 Wt: 207.23 lbs 94 kg Age: 60 Gender: male BSA: 2.05 PROCEDURE(S) PERFORMED [id number])LHC/COR/LV CLINICAL PROFILE AND INDICATIONS Indications: ACS <= 24 hrs Heart Failure: None Stress/Imaging Date: 05/19/25Stress Test with SPECT MPI: Positive High Risk CAD Presentations: Unstable angina. CONCLUSIONS Severe right coronary artery proximal lesion and mild to moderate in-stent stenosis of a previous LAD stent and mild to moderate left circumflex disease. RECOMMENDATIONS Referred for immediate PCI DESCRIPTION OF PROCEDURE The patient arrived to the procedure lab. The risks and benefits of the procedure as well as a full description of our services here and current unavailability of surgical backup were fully explained to the patient and/or their significant other prior to the catheterization. The Timeout was completed, verifying the correct patient and procedure. The patient's procedural site was prepped and draped in the usual fashion. Local anesthetic was given subcutaneously to right radial region with Lidocaine 2%. Using a modified Seldinger technique, arterial access was obtained via the right radial artery, a 6Fr sheath was inserted. Left Coronary Artery selective angiography was performed in multiple views using a 6 Fr. 4.0 [place] catheter. Right Coronary Artery selective angiography was then performed in multiple views using a 5 Fr. JR 5 catheter. Left Ventriculography was performed in [place] projection using a 5 Fr. Pig[place] catheter. LV to AO pullback pressures were then recorded. CORONARY ANGIOGRAPHY DOMINANCE: Right Dominant LEFT HEART ASSESSMENT Left Ventricular Ejection Fraction: by LV Gram 40 % Inferior Basal Hypokinesis - Severe. Inferior Mid Hypokinesis - Moderate. Anterior Hypokinesis - Mild Depressed Left Ventricular systolic function LEFT MAIN: Angiographically normal LEFT ANTERIOR DESCENDING ARTERY: Instent restenosis 30 % PROX LAD: Instent restenosis 30 % CIRCUMFLEX ARTERY: Moderate luminal irregularities up to 50% RIGHT CORONARY ARTERY: Dominant high-grade right coronary artery lesion of 95% with likely thrombus vessel continues distally with a large posterior descending artery and posterolateral vessel. COMPLICATIONS PROCEDURE MEDICATIONS Fentanyl 50 mcg IV Versed 2 mg IV Versed 1 mg IV Oxygen: 2 L/min via nasal cannula Benadryl 50 mg IV 05/20/2025 12:32:51 Brilinta 180 mg PO @ 05/20/2025 13:05:28 Heparin given IA 05/20/2025 12:43:19 Metoprolol 5 mg 05/20/2025 12:33:02 Solu-medrol 125 mg IV 05/20/2025 12:33:02 SUMMARY OF HEMODYNAMIC DATA Time AIR REST ECG 11:40:07 Art 155/73 (99) 12:46:41 AO 139/77 (105) SA 12:50:13 LV 131/4, 14 13:02:39 LV 132/5, 14 13:02:50 LV 136/4, 17 13:03:44 LVp 136/5, 17 13:03:51 AOp 140/74 (105) 13:03:58 Signed By Fly Smith MD On 05/20/2025 13:18:44 Fly Smith MD
[2025-05-20 15:08] LABS: ACT Activated Clotting Time 222 sec (74-137)
--- NOTE | 2025-05-20 15:34 | CRPHASE1_ITS ---
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 Our purpose is to help you have a full recovery and achieve the goals you set for yourself. Over the years many of our patients have returned to activities they assumed they would never do again! We can help restore your confidence and motivation to make lifestyle changes that can have a significant impact on your health and quality of life! We can help answer questions and concerns you may have about exercise, lifestyle, medications, diet, stress and anxiety which are common following a hospitalization. WE monitor ECG and vital signs during exercise and discuss your progress with you and report to your physician(s). Cardiac Rehab is proven to help reduce readmissions, improve functional capacity and lower recurrence of problems with your heart. Our Cardiac Rehab program is Certified by the [place] [employer] Pulmonary [employer] (AACVPR) and Accredited by the [place] [employer] through our [facility]. You can contact us at . We invite you to call us with your questions or to get started in our program. If you have other questions or concerns be sure to ask your physician/provider during your follow-up visit. WE look forward to seeing you!
--- NOTE | 2025-05-20 15:35 | CRPH1.INSTRU ---
General Education Discussed with Patient CAD and cardiac anatomy and function:: Patient communicates acknowledgment and Family communicates acknowledgment Explanation of diagnoses and procedures:: Patient communicates acknowledgment and Family communicates acknowledgment Sign/Symptoms of MD:: Patient communicates acknowledgment and Family communicates acknowledgment Antiplatelet therapy: Patient communicates acknowledgment and Family communicates acknowledgment Proper use of NTG-SL: Patient communicates acknowledgment and Family communicates acknowledgment Emergency procedures and activation of EMS: Patient communicates acknowledgment and Family communicates acknowledgment Compliance of all prescribed medications: Patient communicates acknowledgment and Family communicates acknowledgment Smoking Risk Factors Patient Nicotine/Smoking Risk Factors Are:: Never smoked Dyslipidemia Risk Factors Patient Dyslipidemia Risk Factors Are:: Total Cholesterol, Triglycerides, HDL and LDL Recommendations Recommendations Include:: Lipid profile not available Response Code Dyslipidemia Response Code:: Patient communicates acknowledgment and Family communicates acknowledgment Overweight/Obesity Risk Factors Patient Overweight/Obesity Risk Factors Are:: Obesity - > or = 30 Recommendations Recommendations Include:: Weight loss of 5-10%, Reduced calorie diet and Exercise 5-7 times/week Response Code Overweight/Obesity:: Patient communicates acknowledgment and Family communicates acknowledgment Hypertension Recommendations Recommendations Include:: Maintain BP <130/85 and Decrease/maintain normal body weight Response Code Hypertension:: Patient communicates acknowledgment and Family communicates acknowledgment Heart Disease Risk Factors Patient Heart Disease Risk Factors Are:: Family history of heart disease < 65 years old and Previous cardiac event Recommendations Recommendations Include:: Educated family members of their risk and Educated family members of importance of prevention of heart disease Response Code Heart Disease Response Code:: Patient communicates acknowledgment and Family communicates acknowledgment Sedentary Risk Factors Patient Sedentary Risk Factors Are:: Lack of regular exercise Recommendations Recommendations Include:: Aerobic exercise 5-7 times/week for 20-30 minutes continuously, Benefits of regular exercise, Discussed home walking program and Monitored Outpatient Cardiac Rehab Response Code Sedentary Response Code:: Patient communicates acknowledgment and Family communicates acknowledgment
--- NOTE | 2025-05-20 15:38 | PCM.HP.STD ---
[facility] - General General Date of Admission: 05/20/25 HPI Narrative ELEAZAR COVINGTON, is a 60 M who presents to the hospital with chest pain. He had a stress test yesterday that was positive for ischemia in the inferior wall with reduced perfusion, the resting images did demonstrate near normalization of the blood suggesting at least a moderate amount of inferior ischemia at the moderate workload attained. At that time his EF was 54%. He presented back to the hospital for continued chest pain and given the findings from yesterday's stress testing underwent a cardiac catheterization which demonstrated a high-grade RCA lesion 95% they were able to get a drug-eluting stent placed, he did have a previous LAD stent that showed approximately 30% restenosis. [facility] Medical History Wears glasses Alcohol use History of steroid therapy Diabetes Arthritis Injury of head and neck Dietary restriction Gastric reflux Non-smoker History of echocardiogram History of stress test Cardiology follow-up encounter Type 2 diabetes mellitus without complication Atherosclerosis of coronary artery of [place] heart without angina pectoris Essential hypertension Home Medications ?Medication ?Instructions ?Recorded ?Last Taken ?Type atenolol 25 mg tablet 25 mg PO DAILY bp/heart 03/17/18 07/27/24 History zolpidem 10 mg tablet 10 mg PO QHS sleep 03/17/18 07/27/24 History losartan 25 mg tablet 25 mg PO DAILY 01/27/20 07/27/24 History glimepiride 4 mg tablet 6 mg PO QAM 07/28/22 07/27/24 History meclizine 25 mg tablet 25 mg PO TID PRN PRN dizziness #20 11/12/23 Unknown Rx tabs metformin 500 mg tablet,extended 1,000 mg PO BID 11/12/23 07/27/24 History release 24 hr rosuvastatin 40 mg tablet 40 mg PO DAILY 11/12/23 Unknown History diazepam 2 mg tablet 2 mg PO DAILY 07/21/24 07/27/24 History nitroglycerin 0.4 mg sublingual 0.4 mg sublingual Q5-15M PRN chest 05/11/25 Unknown Rx tablet pain #25 tabs hydrochlorothiazide 12.5 mg tablet 25 mg PO DAILY 05/14/25 Unknown History aspirin 81 mg tablet,delayed 81 mg PO BREAKFAST 30 days #30 tabs 05/21/25 Unknown Rx release ticagrelor 90 mg tablet (Brilinta) 90 mg PO BID 30 days #60 tabs 05/21/25 Unknown Rx Allergy/AdvReac Type Severity Reaction Status Date / Time Iodinated Contrast Media Allergy Hives Verified 05/20/25 06:45 (CONTRASTS) levofloxacin (From Levaquin) Allergy Hives Verified 05/20/25 06:45 lisinopril AdvReac Intermediate cough Verified 05/20/25 06:45 Family History Father , Age 42 Myocardial infarction Brother Myocardial infarction, Onset Age: 55 Brother Myocardial infarction, Onset Age: 62 Sister Heart disease Mother Heart disease CHF Cancer cancer Surgical History History of cardiac catheterization Hx of cervical spine surgery History of shoulder surgery History of coronary artery stent placement (09/15/02) History of umbilical hernia repair History of carpal tunnel release of both wrists History of cholecystectomy History of shoulder replacement History of fusion of cervical spine History of left heart catheterization (07/11/19) Social History Smoking Status: Never smoker alcohol intake: current alcohol intake frequency: a few times a week substance use type: does not use caffeine: Yes Type: coffee Number of servings: 3 ROS Constitutional Constitutional: Denies chills, fatigue, fever(s) or malaise Eyes Eyes: Denies blurry vision ENT HEENT: Denies headache(s) or nasal discharge Cardiovascular Cardiovascular: Reports chest pain; Denies dyspnea on exertion or syncope Respiratory/Chest Respiratory/Chest: Denies cough, shortness of breath at rest or shortness of breath with exertion Gastrointestinal Gastrointestinal: Denies constipation, diarrhea, nausea or vomiting Genitourinary Genitourinary: Denies dysuria Neurologic Neurologic: Denies focal weakness, numbness or tremor(s) Psychiatric Psychiatric: Denies anxiety or depression Vital Signs Vital Signs Vital Signs: 05/20/25 06:47 05/20/25 06:49 05/20/25 07:15 Temperature 97 F L Temperature Source Oral Pulse Rate 97 97 Respiratory Rate 18 Respiratory Effort Normal Blood Pressure 158/91 H 136/87 H Blood Pressure Mean 113 Blood Pressure Source Blood Pressure Position Blood Pressure Location Pulse Ox 99 Oxygen Delivery Method 05/20/25 07:45 05/20/25 08:00 05/20/25 09:00 Temperature Temperature Source Pulse Rate 89 88 88 Respiratory Rate 16 16 16 Respiratory Effort Blood Pressure 125/82 H 117/78 134/89 H Blood Pressure Mean 96 91 104 Blood Pressure Source Blood Pressure Position Blood Pressure Location Pulse Ox 99 99 99 Oxygen Delivery Method 05/20/25 10:00 05/20/25 10:47 05/20/25 15:13 Temperature 98 F 97.4 F L Temperature Source Temporal Pulse Rate 84 90 91 Respiratory Rate 16 18 15 Respiratory Effort Blood Pressure 130/80 H 142/88 H 125/79 H Blood Pressure Mean 96 106 94 Blood Pressure Source Monitor Blood Pressure Position Semi-Fowlers Blood Pressure Location Left Arm Pulse Ox 99 99 95 Oxygen Delivery Method Room Air Weight Weight: 208 lb 12.8 oz Body Mass Index (BMI) 32.7 Physical Exam Narrative General: Alert, Oriented x3, Cooperative, No apparent distress HEENT: Atraumatic, PERRLA, EOMI, Normocephalic Oral: Moist Mucosa Neck: Supple, No JVD Lungs: Diminished, Normal air movement, No rhonchi, No wheeze, No rales Cardiovascular: Regular rate, Regular Rhythm, Normal S1, Normal S2, No murmurs Abdomen: Soft, Non Tender, Non-Distended, No Hepato-splenomegaly Extremities: No edema, Capillary Refill Less than 3 Seconds Skin: No rashes, No breakdown Musculoskeletal: No Tenderness to Palpation of Joints or Extremities Neurological: No focal neurological deficits, moves all extremities Psych/Mental Status: Normal Affect, Appropriate Results Lab / Micro Data 05/21/25 04:54 05/21/25 04:54 Labs: Laboratory Results - last 24 hr 05/20/25 06:52: WBC 8.1, RBC 4.76, Hgb 13.9, Hct 41.3, MCV 86.8, MCH 29.2, MCHC 33.7, RDW Std Deviation 39.8, RDW Coeff of Noam 12.8, Plt Count 378, MPV 8.9, Immature Gran % (Auto) 0.200, Neut % (Auto) 46.8 L, Lymph % (Auto) 39.3, [place] % (Auto) 7.8, Eos % (Auto) 5.2 H, Baso % (Auto) 0.7, Absolute Neuts (auto) 3.8, Absolute Lymphs (auto) 3.17, Nucleated RBC % 0, PT 13.4, INR 1.0, APTT 30.7, Sodium 139, Potassium 3.6, Chloride 103, Carbon Dioxide 24.5, Anion Gap 12, BUN 11, Creatinine 1.18, Estim Creat Clear Calc 71.84, Est GFR (MDRD) Non-Af 70, BUN/Creatinine Ratio 9.1 L, Glucose 166 H, Calcium 9.1, Troponin T High Sens 43 H 05/20/25 09:06: Troponin T Hi Sens 2 Hr 41 H 05/20/25 11:08: Troponin T Hi Sens 4Hr 42 H 05/20/25 13:06: Activated Clotting Time 222 H Imaging Radiology Impression Chest X-Ray 05/20/25 07:20 IMPRESSION: Hypoventilation. Subsegmental atelectasis left lung base. Reading Location: [id number] Assessment & Plan Assessment/Plan (1) Acute coronary syndrome: PLAN: Plan 1. CAD status post stent to the RCA and a previous stent in the LAD/essential HTN/HLD ? Continue the statin ? Continue with aspirin and Brilinta ? He did receive a stent to the RCA on 05/20/2025 after stress test on 05/19/2025 showed inferior wall ischemia ? Can resume his home blood pressure medications and monitor make adjustments as necessary ? Last echo in our system in 2019 with an EF of 55% 2. DM2 ? Hold his metformin and glimepiride ? Accu-Cheks ACHS ? Sliding scale insulin ? Will monitor make adjustments as necessary DVT: Lovenox 75 minutes was spent on direct patient care, including documentation as well as chart review and collaboration with colleagues Charges/Coding Visit Charges Inpatient E&M: 80291 Init Hosp L3
--- NOTE | 2025-05-20 16:57 | EKG12_ITS ---
Test Reason : CP Blood Pressure : */* mmHG Vent. Rate : 89 BPM Atrial Rate : 89 BPM P-R Int : 140 ms QRS Dur : 80 ms QT Int : 382 ms P-R-T Axes : 34 -8 62 degrees QTcB Int : 464 ms Normal sinus rhythm Normal ECG When compared with ECG of 20-May-2025 06:47, MANUAL COMPARISON REQUIRED DATA IS UNCONFIRMED Confirmed by CARRIE LOPEZ, ASHIA ([id number]), sports editor DANIEL BANSAL ([id number]) on 05/21/2025 1:21:38 PM Referred By: Confirmed By: ASHIA BUTLER MD
[2025-05-20] MEDS: TICAGRELOR 90 MG TABLET PO (21:10)
[2025-05-21 03:40] VITALS: BP 134/93; PULSE 96; RESP 18; TEMP 36.2; O2SAT 94
[2025-05-21 05:45] LABS: Hematocrit 40.4 % (40-54); Hemoglobin 14.2 g/dL (13.0-16.5); Immature Granulocytes Count 0.050 X10^3/uL (0.0-0.0); Mean Corp Hgb Conc 35.1 g/dL (32-36); Mean Corpuscular Volume 85.8 fL (80-94); Mean Platelet Vol. 9.1 fl (6.2-12.0); NRBC Flagged by Analyzer 0 % (0-5); Platelet Count 405 K/mm3 (150-450); RBC Distribution Width CV 12.7 % (11.6-14.6); RBC Distribution Width SD 39.8 fl (35.1-43.9); Red Blood Count 4.71 M/mm3 (4.6-6.2); White Blood Count 12.5 K/mm3 (4.4-11.0)
[2025-05-21 06:53] LABS: AST(SGOT) 25 U/L (<=37); Alanine Aminotransfer ALT/SGPT 24 U/L (<=46); Albumin, Serum 4.2 g/dL (3.4-4.8); Alkaline Phosphatase 73 U/L (40-129); Anion Gap 14 (5-15); BUN 14 mg/dL (4-19); BUN/Creat Ratio 13.6 RATIO (10-20); Calcium,Total 9.4 mg/dL (7.6-11.0); Carbon Dioxide 21.1 mmol/L (21.0-32.0); Chloride 101 mmol/L (98-108); Estimated Creatinine Clearance 84.24 ml/min (50-250); Globulin 2.5 g/dL (2.2-4.2); Glucose 233 mg/dL (70-99); Potassium 3.9 mmol/L (3.3-5.1)
--- NOTE | 2025-05-21 06:55 | PCM.PN.CARD ---
Subjective Subjective Patient seen and evaluated. Appears to be quite well. No complaints Objective Data Vital Signs: Vital Signs Temp Pulse Resp BP Pulse Ox O2 Del Method 97.1 F L 96 18 134/93 H 94 Room Air 05/21/25 03:40 05/21/25 03:40 05/21/25 03:40 05/21/25 03:40 05/21/25 03:40 05/21/25 03:40 Oxygen Delivery Method Room Air Weight: 208 lb 12.8 oz Body Mass Index (BMI) 32.7 Intake & Output: Intake and Output for Last 24 Hours 05/19/25 05/20/25 05/21/25 23:59 23:59 23:59 Intake Total 400 / 400 Output Total 350 / 350 Balance 50 / 50 Lab / Micro Data 05/21/25 04:54 05/21/25 04:54 Labs: Laboratory Results - last 24 hr 05/20/25 06:52: WBC 8.1, RBC 4.76, Hgb 13.9, Hct 41.3, MCV 86.8, MCH 29.2, MCHC 33.7, RDW Std Deviation 39.8, RDW Coeff of Noam 12.8, Plt Count 378, MPV 8.9, Immature Gran % (Auto) 0.200, Neut % (Auto) 46.8 L, Lymph % (Auto) 39.3, [place] % (Auto) 7.8, Eos % (Auto) 5.2 H, Baso % (Auto) 0.7, Absolute Neuts (auto) 3.8, Absolute Lymphs (auto) 3.17, Nucleated RBC % 0, PT 13.4, INR 1.0, APTT 30.7, Sodium 139, Potassium 3.6, Chloride 103, Carbon Dioxide 24.5, Anion Gap 12, BUN 11, Creatinine 1.18, Estim Creat Clear Calc 71.84, Est GFR (MDRD) Non-Af 70, BUN/Creatinine Ratio 9.1 L, Glucose 166 H, Calcium 9.1, Troponin T High Sens 43 H 05/20/25 09:06: Troponin T Hi Sens 2 Hr 41 H 05/20/25 11:08: Troponin T Hi Sens 4Hr 42 H 05/20/25 13:06: Activated Clotting Time 222 H 05/20/25 17:05: POC Glucose 195 H 05/20/25 21:08: POC Glucose 244 H 05/21/25 04:54: WBC 12.5 H, RBC 4.71, Hgb 14.2, Hct 40.4, MCV 85.8, MCH 30.1, MCHC 35.1, RDW Std Deviation 39.8, RDW Coeff of Noam 12.7, Plt Count 405, MPV 9.1, Immature Gran % (Auto) 0.400, Neut % (Auto) 79.7 H, Lymph % (Auto) 14.5 L, [place] % (Auto) 5.2, Eos % (Auto) 0.0, Baso % (Auto) 0.2, Absolute Neuts (auto) 10.0 H, Absolute Lymphs (auto) 1.82, Nucleated RBC % 0, Sodium 136, Potassium 3.9, Chloride 101, Carbon Dioxide 21.1, Anion Gap 14, BUN 14, Creatinine 1.01, Estim Creat Clear Calc 84.24, Est GFR (MDRD) Non-Af 85, BUN/Creatinine Ratio 13.6, Glucose 233 H, Calcium 9.4, Total Bilirubin 0.72, AST 25, ALT 24, Alkaline Phosphatase 73, Total Protein 6.7, Albumin 4.2, Globulin 2.5, Albumin/Globulin Ratio 1.7 05/21/25 06:21: POC Glucose 198 H Cardiology Labs/Tests 05/20/25 06:52: WBC 8.1, RBC 4.76, Hgb 13.9, Hct 41.3, MCV 86.8, MCH 29.2, MCHC 33.7, Plt Count 378, MPV 8.9, Immature Gran % (Auto) 0.200, Neut % (Auto) 46.8 L, Lymph % (Auto) 39.3, [place] % (Auto) 7.8, Eos % (Auto) 5.2 H, Baso % (Auto) 0.7, Absolute Neuts (auto) 3.8, Nucleated RBC % 0, PT 13.4, INR 1.0, APTT 30.7, Sodium 139, Potassium 3.6, Chloride 103, Carbon Dioxide 24.5, Anion Gap 12, BUN 11, Creatinine 1.18, Est GFR (MDRD) Non-Af 70, BUN/Creatinine Ratio 9.1 L, Glucose 166 H, Calcium 9.1 05/21/25 04:54: WBC 12.5 H, RBC 4.71, Hgb 14.2, Hct 40.4, MCV 85.8, MCH 30.1, MCHC 35.1, Plt Count 405, MPV 9.1, Immature Gran % (Auto) 0.400, Neut % (Auto) 79.7 H, Lymph % (Auto) 14.5 L, [place] % (Auto) 5.2, Eos % (Auto) 0.0, Baso % (Auto) 0.2, Absolute Neuts (auto) 10.0 H, Nucleated RBC % 0, Sodium 136, Potassium 3.9, Chloride 101, Carbon Dioxide 21.1, Anion Gap 14, BUN 14, Creatinine 1.01, Est GFR (MDRD) Non-Af 85, BUN/Creatinine Ratio 13.6, Glucose 233 H, Calcium 9.4, Total Bilirubin 0.72 Rhythm: EKG: ECHO: Stress Test: Cardiac Cath: PCI: CT Surgery: Holter monitor: EPS: PPM: CXR: Chest CT Scan: Radiography Diagnostic Testing: Radiology Impression Chest X-Ray 05/20/25 07:20 IMPRESSION: Hypoventilation. Subsegmental atelectasis left lung base. Reading Location: [facility] Physical Exam Const alert and oriented x3 Orientation / Consciousness: awake HEENT normocephalic Neck Carotids: normal carotid upstroke Chest inspection of chest normal Cardio Rate: regular rate Rhythm: regular rhythm Assessment & Plan Assessment/Plan (1) History of left heart catheterization: PLAN: Patient underwent cardiac catheterization yesterday with a right coronary artery stent. Successfully done. Patient will be discharged for outpatient follow-up and cardiac rehab.
[2025-05-21 08:31] VITALS: O2SAT 94
[2025-05-21 08:40] VITALS: BP 139/86; PULSE 87; RESP 14; TEMP 36.1; O2SAT 96
[2025-05-21] MEDS: TICAGRELOR 90 MG TABLET PO (08:41)
[2025-05-21] MEDS: Aspirin E.C. 81 MG Tablet PO (08:42)
--- NOTE | 2025-05-21 09:32 | CASEMGMT ---
Addendum entered by Harry Yoder 05/21/25 11:11: [facility] calls this medical writer back and states that the medication costs 86.31 through insurance and only 43.99 wray morris. POLY YOON to the pt's room at this time. Pt states that he would rather pay the wray morris than to pay the higher amount towards his deductible. Pt states that he has a card to pay. Pt plans to follow up with cardiology as an OP. Pt denies further needs. TC to [facility] and updated and plans to deliver meds to bed. no further needs identified. Addendum entered by Harry Yoder 05/21/25 10:54: Pt has an order for DC placed with new rx for Brilinta. TC to [facility] to request pricing. [facility] will call this POLY YOON back with morris. POLY YOON to pt's room at this time and updated the pt that this medical writer will provide a morris once able. Pt agreeable to meds to bed as the pt does have a payment method. Pt denies further questions or concerns now. Original Note: Dx:Chest Pain LACE: 2 6-Clicks: 24 Medical record reviewed and patient evaluated for identification of discharge planning needs. Based on this review, at this time criteria are not present to indicate a need for discharge planning e/f anticoag needs. Noted pt plans to follow up with cardiology as an OP. Will remain available to assist with discharge planning needs as identified or requested.
--- NOTE | 2025-05-21 10:00 | EKG12_ITS ---
Test Reason : POST-PCI Blood Pressure : */* mmHG Vent. Rate : 94 BPM Atrial Rate : 94 BPM P-R Int : 134 ms QRS Dur : 86 ms QT Int : 370 ms P-R-T Axes : 44 -19 9 degrees QTcB Int : 462 ms Normal sinus rhythm Inferior infarct , age undetermined Abnormal ECG When compared with ECG of 20-May-2025 16:57, MANUAL COMPARISON REQUIRED DATA IS UNCONFIRMED Confirmed by CARRIE LOPEZ, ASHIA ([id number]), newspaper editor DANIEL BANSAL ([id number]) on 05/21/2025 10:09:11 AM Referred By: JORDAN Confirmed By: ASHIA BUTLER MD
--- NOTE | 2025-05-21 10:39 | DCINST_ITS ---
Discharge Instructions DC O2, CPAP, BIPAP needs Home O2 Discharge instructions: No Dressing / Incision Discharge Activity: Return to Normal Activity Dressing / Incision Call your doctor if you observe: Fever of 101 or Higher, Shortness of breath, Dizziness, Fainting spells, Swelling in the ankles, Chest pain and Increased palpitations (irregular heartbeat) Follow Up Care Test Results: Test results from this visit will be discussed in further detail at your follow- up appointment, if applicable. Discharge Plan Admission Admit Date/Time: 05/20/25 10:36 Attending Provider: Nimesh Trejo Primary Care Provider: Jose A Bush Consulting Providers: Fly Smith Discharge Orders/Prescriptions Prescriptions: New aspirin 81 mg Tablet,Delayed Release (Dr/Ec) 81 mg PO BREAKFAST 30 Days Qty: 30 0RF ticagrelor [Brilinta] 90 mg Tablet 90 mg PO BID 30 Days Qty: 60 0RF Continued losartan 25 mg tablet 25 mg PO DAILY hydrochlorothiazide 12.5 mg tablet 25 mg PO DAILY glimepiride 4 mg tablet 6 mg PO QAM Patient Comments: TAKE 1 1/2 TAB QAM FOR 6 MG IN AM THEN 1/2 TABLET IN PM 2 MG atenolol 25 MG tablet 25 mg PO DAILY zolpidem 10 MG tablet 10 mg PO QHS diazepam 2 mg tablet 2 mg PO DAILY rosuvastatin 40 mg tablet 40 mg PO DAILY metformin 500 mg tablet extended release 24 hr 1,000 mg PO BID meclizine 25 mg tablet 25 mg PO TID PRN PRN (Reason: dizziness) Qty: 20 0RF nitroglycerin 0.4 mg tablet, sublingual 0.4 mg sublingual Q5-15M PRN (Reason: chest pain) Qty: 25 3RF Rx Instructions: do not exceed 3 doses per episode Referrals / Follow Up: Fly Smith MD [Med Staff - Active Staff, Cardiology] - Within 1 Month Jose A Bush MD [Primary Care Provider, Family Practice] - Within 1 Week Disposition Disposition (needs filled in before D/C Order can be placed): Home, Self Care
--- NOTE | 2025-05-21 11:51 | PHA.DC.MR.R ---
Pharmacy [facility] Reconciliation Pharmacy Service has performed discharge medication reconciliation for this patient. The patient's discharge medication list was reviewed for discrepancies and discrepancies were resolved. Medications at Discharge Home Medications atenolol 25 mg tablet 25 mg PO DAILY bp/heart 03/17/18 zolpidem 10 mg tablet 10 mg PO QHS sleep 03/17/18 losartan 25 mg tablet 25 mg PO DAILY 01/27/20 glimepiride 4 mg tablet 6 mg PO QAM 07/28/22 meclizine 25 mg tablet 25 mg PO TID PRN PRN dizziness #20 tabs 11/12/23 metformin 500 mg tablet,extended release 24 hr 1,000 mg PO BID 11/12/23 rosuvastatin 40 mg tablet 40 mg PO DAILY 11/12/23 diazepam 2 mg tablet 2 mg PO DAILY 07/21/24 nitroglycerin 0.4 mg sublingual tablet 0.4 mg sublingual Q5-15M PRN chest pain #25 tabs 05/11/25 hydrochlorothiazide 12.5 mg tablet 25 mg PO DAILY 05/14/25 aspirin 81 mg tablet,delayed release 81 mg PO BREAKFAST 30 days #30 tabs 05/21/25 ticagrelor 90 mg tablet (Brilinta) 90 mg PO BID 30 days #60 tabs 05/21/25
--- NOTE | 2025-05-21 13:33 | CL.I_ITS ---
Patient Name: ELEAZAR COVINGTON Study Date: 05/20/2025 Performing: Misty Beckwith MD Ht: 67 inches 170.18 cm : 1965 Wt: 207.5 lbs 94 kg Age: 60 Gender: male BSA: 2.05 PROCEDURE(S) PERFORMED IC12-(88016/[id number])LIZABETH W/WO PTCA, SINGLE CORONARY ARTERY IC11A-([id number])CORONARY INTRAVASCULAR LITHOTRIPSY CLINICAL PROFILE AND CO-MORBIDITIES Indications: ACS <= 24 hrs Heart Failure: None Stress/Imaging Date: 05/19/25 Stress Test with SPECT MPI: Positive High Risk CAD Presentations: Unstable angina. CONCLUSIONS Successful Intravascular lithotripsy and LIZABETH to pRCA RECOMMENDATIONS DESCRIPTION OF PROCEDURE The patient arrived to the procedure lab. The risks and benefits of the procedure as well as a full description of our services here and current unavailability of surgical backup were fully explained to the patient and/or their significant other prior to the catheterization. The Timeout was completed, verifying the correct patient and procedure. The patient's procedural site was prepped and draped in the usual fashion. Local anesthetic was given subcutaneously to right radial region with Lidocaine 2% Using a modified Seldinger technique,arterial access was obtained via the right radial artery, a 6Fr sheath was inserted. Left Coronary Artery selective angiography was performed in multiple views using a 6 Fr. 4.0 [place] catheter. Right Coronary Artery selective angiography was then performed in multiple views using a 5 Fr. JR 5 catheter. Left Ventriculography was performed in BATEMAN projection using a 5 Fr. Pigtail catheter. LV to AO pullback pressures were then recorded.The images were reviewed and options discussed. A decision was then made to proceed with an Intervention, IVUS or other adjunct procedure. JR4 Guide catheter was inserted and engaged into the RCA. BMW Guide wire was advanced to the RCA. 3x15 Emerge Balloon catheter was inserted. 1.5x15 Emerge push Balloon catheter was inserted. Balloon catheter was advanced across lesion in the right coronary, proximal. PTCA balloon inflated at 14 atms for 22 secs. PTCA balloon inflated at 14 atms for 22 secs. PTCA balloon inflated at 14 atms for 12 secs. 3x15 Emerge Balloon catheter was reinserted Angiogram performed post balloon dilatation. PTCA balloon inflated at 6 atms for 5 secs. PTCA balloon inflated at 6 atms for 20 secs. 2x20 Emerge Balloon catheter was inserted. Balloon catheter was advanced across lesion in the right coronary, proximal. PTCA balloon inflated at 12 atms for 17 secs. Runthrough Guide wire was inserted as a lebron wire 2x12 Euphora Balloon catheter was inserted. Balloon catheter was advanced across lesion in the right coronary, proximal. PTCA balloon inflated at 14 atms for 15 secs. PTCA balloon inflated at 14 atms for 8 secs. PTCA balloon inflated at 14 atms for 8 secs. PTCA balloon inflated at 14 atms for 8 secs. PTCA balloon inflated at 14 atms for 8 secs. PTCA balloon inflated at 14 atms for 8 secs. PTCA balloon inflated at 14 atms for 6 secs. PTCA balloon inflated at 14 atms for 12 secs. Angiogram performed post balloon dilatation. PTCA balloon inflated at 6 atms for 22 secs. PTCA balloon inflated at 6 atms for 20 secs. PTCA balloon inflated at 6 atms for 22 secs. Angiogram performed post balloon dilatation. PTCA balloon inflated at 6 atms for 30 secs. Angiogram performed post balloon dilatation. 3x12 NC Euphora Balloon catheter was inserted. Balloon catheter was advanced across lesion in the right coronary, proximal. 3x12 Euphora Balloon catheter was inserted. Balloon catheter was advanced across lesion in the right coronary, proximal. PTCA balloon inflated at 14 atms for 22 secs. PTCA balloon inflated at 14 atms for 16 secs. PTCA balloon inflated at 14 atms for 13 secs. PTCA balloon inflated at 6 atms for 26 secs. PTCA balloon inflated at 6 atms for 29 secs. PTCA balloon inflated at 6 atms for 24 secs. PTCA balloon inflated at 6 atms for 26 secs. PTCA balloon inflated at 6 atms for 20 secs. PTCA balloon inflated at 6 atms for 24 secs. 3x12 NC Euphora Balloon catheter was reinserted PTCA balloon inflated at 20 atms for 22 secs. Angiogram performed post balloon dilatation. 3.5x12 NC Euphora Balloon catheter was inserted. Balloon catheter was advanced across lesion in the right coronary, proximal. AL1 Guide catheter was inserted and engaged into the RCA. BMW Guide wire was advanced to the RCA. 3.5x12 NC Euphora Balloon catheter was inserted. Balloon catheter was advanced across lesion in the right coronary, proximal. PTCA balloon inflated at 20 atms for 30 secs. 3.5x22 [place] Drug Eluting stent was inserted. Drug Eluting stent was advanced across the lesion in the right coronary, proximal. Angiogram performed post stent deployment. 3.5x12 NC Euphora Balloon catheter was reinserted Balloon catheter was inserted post stent. Angiogram performed post balloon dilatation. The arterial sheath was pulled and a TR Band was applied for hemostasis. 10cc of air INTERVENTION INFORMATION LESION SITE: RCA (Proximal) Lesion Complexity: High/C, chronic total occlusion: No, chronic total occlusion: No, lesion at bifurcation: No, thrombus present: No, lesion length: 20 mm, culprit lesion: Yes, Previously treated lesion: No Pre Stenosis: 90 % Pre intervention FANTA flow: 3 PROCEDURE: Balloon Angioplasty, Drug Eluting Stent with pre and post dilatation, Coronary Intravascular Lithotripsy - IVL Lesion was calcified and despite multiple inflations with compliant, non compliant balloon and IVL, there was residual 5-10% stenosis. Post Stenosis: 10 % Post intervention FANTA flow: 3 Lesion Devices: Garcia .014 190cm BMW Chandler Straight Cordis 6 Fr JR4 100cm Guide Catheter Enrike Sci EMERGE MR 3.00x15 BALLOON Enrike Sci EMERGE PUSH MR 1.50x15 BALLOON Enrike Sci EMERGE MR 2.00x20 BALLOON Terumo .014 180cm Runthrough Extra Floppy straight Medtronic SC EUPHORA RX 2.0x12 BALLOON [employer] Shockwave IVL 3.5x12 Garcia .014 190cm BMW Chandler Straight Medtronic NC EUPHORA RX 3.0x12 BALLOON Medtronic SC EUPHORA RX 3.0x12 BALLOON Medtronic NC EUPHORA RX 3.5x12 BALLOON Cordis 6 Fr AL1.0 100cm Guide Catheter Medtronic 3.5 x 22 ZACARIAS FRONTIER LIZABETH COMPLICATIONS No Complications PROCEDURE MEDICATIONS Fentanyl 50 mcg IV Versed 2 mg IV Versed 1 mg IV Versed 1 mg IV Fentanyl 25 mcg IV Oxygen: 2 L/min via nasal cannula Benadryl 50 mg IV 05/20/2025 12:32:51 Brilinta 180 mg PO @ 05/20/2025 13:05:28 Heparin given IA 05/20/2025 12:43:19 Heparin 6000 unit(s) IV 05/20/2025 13:31:15 Heparin 2000 unit(s) IV 05/20/2025 14:37:15 Metoprolol 5 mg 05/20/2025 12:33:02 Solu-medrol 125 mg IV 05/20/2025 12:33:02 SUMMARY OF HEMODYNAMIC DATA Time AIR REST ECG 11:40:07 Art 155/73 (99) 12:46:41 AO 139/77 (105) SA 12:50:13 LV 131/4, 14 13:02:39 LV 132/5, 14 13:02:50 LV 136/4, 17 13:03:44 LVp 136/5, 17 13:03:51 AOp 140/74 (105) 13:03:58 AO 117/64 (88) 13:43:13 AIR REST 15:07:30 Signed By Misty Beckwith MD On 05/21/2025 13:32:13 Misty Beckwith MD
--- NOTE | 2025-05-21 14:12 | PCM.DC.SUM ---
Providers Date of Admission: 05/20/25 Primary Care Physician: Dr. Jose A Bush MD Consultations 05/20/25 11:20 Consult: Cardiology Routine Consulting Provider: Fly Smith Reason for Consult: Chest pain EMERGENT Consult: No MD Notified: Yes Date Notified: 05/20/25 Time Notified: 10:45 Method of Notification: ED Physician Initiated Reason For Visit: CHEST PAIN Diagnosis Discharge Diagnosis (1) History of left heart catheterization: Status: Chronic Code(s): Z98.890 - Other specified postprocedural states Medications at Discharge Home Medications atenolol 25 mg tablet 25 mg PO DAILY bp/heart 03/17/18 zolpidem 10 mg tablet 10 mg PO QHS sleep 03/17/18 losartan 25 mg tablet 25 mg PO DAILY 01/27/20 glimepiride 4 mg tablet 6 mg PO QAM 07/28/22 meclizine 25 mg tablet 25 mg PO TID PRN PRN dizziness #20 tabs 11/12/23 metformin 500 mg tablet,extended release 24 hr 1,000 mg PO BID 11/12/23 rosuvastatin 40 mg tablet 40 mg PO DAILY 11/12/23 diazepam 2 mg tablet 2 mg PO DAILY 07/21/24 nitroglycerin 0.4 mg sublingual tablet 0.4 mg sublingual Q5-15M PRN chest pain #25 tabs 05/11/25 hydrochlorothiazide 12.5 mg tablet 25 mg PO DAILY 05/14/25 aspirin 81 mg tablet,delayed release 81 mg PO BREAKFAST 30 days #30 tabs 05/21/25 ticagrelor 90 mg tablet (Brilinta) 90 mg PO BID 30 days #60 tabs 05/21/25 Hospital Course Operations None Procedures Cardiac catheterization Summary of Care Provided Minutes Spent on Discharge: 33 Hospital Course: Per HPI: ELEAZAR COVINGTON, is a 60 M who presents to the hospital with chest pain. He had a stress test yesterday that was positive for ischemia in the inferior wall with reduced perfusion, the resting images did demonstrate near normalization of the blood suggesting at least a moderate amount of inferior ischemia at the moderate workload attained. At that time his EF was 54%. He presented back to the hospital for continued chest pain and given the findings from yesterday's stress testing underwent a cardiac catheterization which demonstrated a high-grade RCA lesion 95% they were able to get a drug-eluting stent placed, he did have a previous LAD stent that showed approximately 30% restenosis. Hospital Course: 1. CAD status post stent to the RCA and a previous stent to the LAD/essential HTN/HLD?60-year-old male presented to the hospital for stress test which was found to be abnormal because he was having intermittent chest pain over the last couple of months. He continued to have chest pain after the result so he presented back to the hospital where they proceeded with a cardiac catheterization. It was found that he had a significant high-grade stenosis in his RCA of 95% which was stented. He feels much better today and request to be discharged home. He did express understanding the risks and benefits of going home and would like to go home today. Will continue with aspirin and Brilinta on discharge as well as the rest of his other cardiac medications. I do recommend a follow-up with his PCP in 3 to 5 days and with cardiology within the next month. Physical Exam Narrative General: Alert, Oriented x3, Cooperative, No apparent distress HEENT: Atraumatic, PERRLA, EOMI, Normocephalic Oral: Moist Mucosa Neck: Supple, No JVD Lungs: Diminished, Normal air movement, No rhonchi, No wheeze, No rales Cardiovascular: Regular rate, Regular Rhythm, Normal S1, Normal S2, No murmurs Abdomen: Soft, Non Tender, Non-Distended, No Hepato-splenomegaly Extremities: No edema, Capillary Refill Less than 3 Seconds Skin: No rashes, No breakdown Musculoskeletal: No Tenderness to Palpation of Joints or Extremities Neurological: No focal neurological deficits, moves all extremities Psych/Mental Status: Normal Affect, Appropriate Weight / BMI Weight Weight: 208 lb 12.8 oz Body Mass Index (BMI) 32.7 ABG / Lab / Microbiology Data 05/21/25 04:54 05/21/25 04:54 Laboratory: Laboratory Results - last 24 hr 05/20/25 13:06: Activated Clotting Time 222 H 05/20/25 17:05: POC Glucose 195 H 05/20/25 21:08: POC Glucose 244 H 05/21/25 04:54: WBC 12.5 H, RBC 4.71, Hgb 14.2, Hct 40.4, MCV 85.8, MCH 30.1, MCHC 35.1, RDW Std Deviation 39.8, RDW Coeff of Noam 12.7, Plt Count 405, MPV 9.1, Immature Gran % (Auto) 0.400, Neut % (Auto) 79.7 H, Lymph % (Auto) 14.5 L, [place] % (Auto) 5.2, Eos % (Auto) 0.0, Baso % (Auto) 0.2, Absolute Neuts (auto) 10.0 H, Absolute Lymphs (auto) 1.82, Nucleated RBC % 0, Sodium 136, Potassium 3.9, Chloride 101, Carbon Dioxide 21.1, Anion Gap 14, BUN 14, Creatinine 1.01, Estim Creat Clear Calc 84.24, Est GFR (MDRD) Non-Af 85, BUN/Creatinine Ratio 13.6, Glucose 233 H, Calcium 9.4, Total Bilirubin 0.72, AST 25, ALT 24, Alkaline Phosphatase 73, Total Protein 6.7, Albumin 4.2, Globulin 2.5, Albumin/Globulin Ratio 1.7 05/21/25 06:21: POC Glucose 198 H D/C Instructions Call your doctor if you observe: Fever of 101 or Higher, Shortness of breath, Dizziness, Fainting spells, Swelling in the ankles, Chest pain and Increased palpitations (irregular heartbeat) DC O2, CPAP, BIPAP Needs Home O2 Discharge instructions: No Meaningful Use Info Meaningful Use Meaningful Use Diagnoses (Choose all that apply): None applicable Discharge Plan Admission Admit Date/Time: 05/20/25 10:36 Attending Provider: Nimesh Trejo Primary Care Provider: Jose A Bush Consulting Providers: Fly Smith Discharge Orders/Prescriptions Prescriptions: New aspirin 81 mg Tablet,Delayed Release (Dr/Ec) 81 mg PO BREAKFAST 30 Days Qty: 30 0RF ticagrelor [Brilinta] 90 mg Tablet 90 mg PO BID 30 Days Qty: 60 0RF Continued losartan 25 mg tablet 25 mg PO DAILY hydrochlorothiazide 12.5 mg tablet 25 mg PO DAILY glimepiride 4 mg tablet 6 mg PO QAM Patient Comments: TAKE 1 1/2 TAB QAM FOR 6 MG IN AM THEN 1/2 TABLET IN PM 2 MG atenolol 25 MG tablet 25 mg PO DAILY zolpidem 10 MG tablet 10 mg PO QHS diazepam 2 mg tablet 2 mg PO DAILY rosuvastatin 40 mg tablet 40 mg PO DAILY metformin 500 mg tablet extended release 24 hr 1,000 mg PO BID meclizine 25 mg tablet 25 mg PO TID PRN PRN (Reason: dizziness) Qty: 20 0RF nitroglycerin 0.4 mg tablet, sublingual 0.4 mg sublingual Q5-15M PRN (Reason: chest pain) Qty: 25 3RF Rx Instructions: do not exceed 3 doses per episode Referrals / Follow Up: Fly Smith MD [Med Staff - Active Staff, Cardiology] - Within 1 Month Jose A Bush MD [Primary Care Provider, Family Practice] - Within 1 Week Disposition Disposition (needs filled in before D/C Order can be placed): Home, Self Care Charges/Coding Visit Charges Inpatient E&M: 57832 Disch Hosp >30min
== END 2025-05-21 11:35 | disposition home or self-care (01) | DRG 322 ==
LOC: ED 07:04 → PCU 10:55
PROVIDERS: Admitting Provider Family Medicine; Emergency Provider Surgery; PCP Family Medicine; Visit Provider Family Medicine
DX: T82.855A Stenosis of coronary artery stent, initial encounter (principal); I47.29 Other ventricular tachycardia; I24.9 Acute ischemic heart disease, unspecified; I25.110 Atherosclerotic heart disease of native coronary artery with unstable angina pectoris; E11.65 Type 2 diabetes mellitus with hyperglycemia; I10 Essential (primary) hypertension; E78.5 Hyperlipidemia, unspecified; K21.9 Gastro-esophageal reflux disease without esophagitis; Z79.84 Long term (current) use of oral hypoglycemic drugs; Z79.899 Other long term (current) drug therapy
CPT/HCPCS: 36415; 71046; 80048; 80053; 82962; 84484; 85025; 85347; 85610; 85730; 92928; 92972; 93005; 93458; 99152; 99153; 99284; C1761; C1769; Q9967; A4216; C1725; C1874; C1887; C1894; C9600